=== PATIENT | male | born 1935 | race Caucasian/White ===

== ENCOUNTER → 2017-01-24 | Outpatient (CLI) | payer MEDICARE, BC ==
--- NOTE | 2017-01-24 16:37 | PN ---
Balwinder is coming for a followup and compliancy check regarding his SOPHIE treatment. The patient has severe SOPHIE with an AHI of 47, currently on an Auto CPAP unit with a pressure minimum of 5, maximum of 20. Note that the patient has also difficulties with kyphosis of the thoracic spine, and this has been an issue while putting on his mask and keeping it on throughout the night. I noted that he continues to have an increased leak around his mask, and this is clearly reflected in his compliancy data. His leak factor is around 53 L/minute while using the Simplus medium-sized full-face mask. While on treatment, his AHI is down to 16 from a baseline of 47. His P90 pressure is at 16 and he is averaging around 4.3 hours of CPAP use every night. He feels better and alert. He is trying to see if we can make any further adjustments on the mask interface to further improve his compliancy. Otherwise, he has no other new complaints for now. His weight has been stable. No other medical new-onset comorbidities. BP is 158/88, pulse 60, respiration 16, temperature 97.5. Saturations are 95% on room air. His BMI is 27.6. Weight is 166. Height is 5 feet 5 inches. GENERAL APPEARANCE: Calm, comfortable. HEENT: Thoracic spine kyphosis and scoliosis. Crowding of the posterior pharynx. There is no goiter or neck mass. LUNGS: Diminished breath sounds bilaterally; otherwise clear. HEART: Sounds are regular rate and rhythm. Normal S1, S2. ABDOMEN: Soft, nontender. No organomegaly. EXTREMITIES: No edema. No cyanosis or clubbing. IMPRESSION: 1. Severe symptomatic obstructive sleep apnea with an AHI of 47, currently on auto CPAP therapy. Compliancy is improving, although the patient is still having some residual obstructive sleep apnea due to increased leak and poor tolerability of his CPAP. 2. Hypersomnia, improving. 3. Severe nocturnal oxygen desaturation, worse during REM. 4. Loud snoring. 5. Hypertension. 6. Benign prostatic hypertrophy. 7. Osteoarthritis. 8. Thoracic spine kyphoscoliosis. PLAN: 1. Will switch this patient to an AirFit F10 full-face mask, medium size. 2. Keep the same CPAP settings, which will be an auto CPAP unit with a minimum of 5, maximum of 20. 3. Continue with the treatment, and hopefully we will see better compliance with AirFit F10 mask, knowing that this may result in less of a leak. He will see me back in 6 months' time for followup.
== END ==
LOC: SLEEP 13:04
PROVIDERS: ATTEND Internal Medicine Critical Care Medicine
DX: G47.33 Obstructive sleep apnea (adult) (pediatric) (principal); I10 Essential (primary) hypertension

== ENCOUNTER → 2017-08-01 | Outpatient (CLI) | payer MEDICARE, BC ==
--- NOTE | 2017-08-01 16:28 | PN ---
PROGRESS NOTE Balwinder has severe SOPHIE with an AHI of 47, and he is currently on an auto CPAP therapy with a minimum pressure of 5 and maximum 20. On today's evaluation the patient is reporting better CPAP use with the exception of the past month where the patient was unable to use the CPAP machine as he was battling a right lower extremity cellulitis and ulceration. Currently is being followed at the wound Center at [facility]. I checked the compliance data and noted that he has not been using the CPAP for the past 1 month. However earlier to that he was doing better, AHI was down to 10 and he was using it with less amount of leak. He is preferring this Simplus full face mask. No recent weight gain. He needs to go back on the CPAP treatment knowing that he has become symptomatic again off the treatment and his [place] score is up to 17. PHYSICAL EXAMINATION: BP is 140/61, pulse 78, respirations 20, temperature 97.2, saturation 96% on room air. BMI 31.5. Weight is 167. General appearance calm comfortable in no acute distress. Head atraumatic, normocephalic. Neck is short, crowding of his posterior pharynx. No goiter or neck masses. Lungs: Thoracolumbar kyphoscoliosis. Diminished breath sounds lung bases. Heart sounds regular rate and rhythm. Normal S1, S2. No murmurs. Abdomen is soft, nontender. No organomegaly. EXTREMITIES: No edema. No cyanosis or clubbing. Skin is negative for ulcers, wounds or cellulitis. Neuro is negative for anxiety, depression or claustrophobia. Neurologic: Alert and oriented times three. There is no focal neurological deficits. IMPRESSION: 1. Severe symptomatic obstructive sleep apnea with an AHI of 47. Currently on auto CPAP therapy. 2. Wound/cellulitis right lower extremity. Currently being followed up at the Wound Center. 3. Hypersomnia secondary to above. [place] score is 17. 4. Leak around the face improved with simple full-face mask. 5. Hypertension. 6. Benign prostatic hypertrophy. 7. Osteoarthritis. 8. Thoracolumbar kyphoscoliosis. PLAN: 1. Would recommend going back to CPAP use on a daily basis. 2. Continue CPAP therapy at same level of pressure. 3. Continue using a Simplus full face mask. 4. Follow up with the Wound Center. 5. See me back in a year's time, earlier if needed. MMODL / IJN: [id number] /
== END ==
LOC: SLEEP 12:59
PROVIDERS: ATTEND Internal Medicine Critical Care Medicine
DX: G47.33 Obstructive sleep apnea (adult) (pediatric) (principal); I10 Essential (primary) hypertension; M19.90 Unspecified osteoarthritis, unspecified site; N40.0 Benign prostatic hyperplasia without lower urinary tract symptoms; M41.85 Other forms of scoliosis, thoracolumbar region

== ENCOUNTER → 2018-08-07 | Outpatient (CLI) | payer MEDICARE, BC, OTHER ==
--- NOTE | 2018-08-07 16:42 | PN ---
PROGRESS NOTE Balwinder is 83, coming in for a compliancy check. This is an annual check for him. He has SOPHIE severe with an AHI of 47, and he has an APAP machine. He has lost weight. He used to weigh 167 approximately year ago. Currently down to 158. He is utilizing APAP at a minimum pressure of 4, maximum pressure of 20. His compliance data indicates adequate use. He is utilizing his machine every night. He is achieving 4.1 hours of APAP use every night. Average pressures is 12.9, and his AHI while on treatment is down to 8.6. He has no complaints. Sleep quality is good. He is waking up refreshed and alert during the day. He is preferring the Simplus full-face mask, and his equipment needs to be renewed. No other complaints otherwise for now, his [place] Score today is down to 12. REVIEW OF SYSTEMS: Twelve-point review of system was done. Positive findings are mentioned in history of present illness. PHYSICAL EXAMINATION: BP is 190/90, pulse 88, respirations 16, temp 97.9. Saturation 95% on room air. Height is 5 feet 0 inches. Weight is 158. BMI is 30.8. GENERAL APPEARANCE: Calm comfortable. Head is atraumatic, normocephalic. NECK: Supple. No JVD. No goiter or neck masses. There is evidence of thoracolumbar kyphoscoliosis involving the spine. Lungs diminished, otherwise clear. HEART: Sounds are regular rate and rhythm. Normal S1, S2. No S3, no murmurs. ABDOMEN: Soft, nontender. No organomegaly. EXTREMITIES: No edema. No cyanosis or clubbing. NEUROLOGIC: Alert and oriented x3. No focal neurological deficits. PSYCHIATRIC: Negative for anxiety or depression. IMPRESSION: 1. Severe SOPHIE with an AHI of 47, currently on APAP. 2. 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 3. Hypersomnia, improved, [place] score is down to 12. 4. Hypertension. 5. Benign prostatic hypertrophy. 6. Osteoarthritis. 7. Thoracolumbar kyphoscoliosis. PLAN: 1. Follow up with primary care regarding blood pressure control. The patient needs to have a tighter BP control. 2. Continue APAP therapy at the same level of pressure. 3. Renew CPAP mask which is a Simplus medium size full-face mask. 4. Weight loss noted. 5. Implement good sleep hygiene measures. 6. See me back in a year's time earlier if needed. The treatment is adequate for now. MMODL / IJN: [id number] /
== END ==
LOC: SLEEP 13:06
PROVIDERS: ATTEND Internal Medicine Critical Care Medicine
DX: G47.33 Obstructive sleep apnea (adult) (pediatric) (principal); I10 Essential (primary) hypertension; N40.0 Benign prostatic hyperplasia without lower urinary tract symptoms; M19.90 Unspecified osteoarthritis, unspecified site; M41.85 Other forms of scoliosis, thoracolumbar region; B95.62 Methicillin resistant Staphylococcus aureus infection as the cause of diseases classified elsewhere; Z99.89 Dependence on other enabling machines and devices

== ENCOUNTER → 2019-08-06 | Outpatient (CLI) | payer MEDICARE, BC ==
--- NOTE | 2019-08-06 14:29 | PN ---
PROGRESS NOTE This 84-year-old male patient with known history of obstructive sleep apnea coming in for a regular check. His last evaluation in my office was in July of 2019. The patient has severe disease with an AHI of 47. He also has severe degenerative arthritis and kyphoscoliosis of the thoracolumbar spine. He has an APAP unit which is set at a minimum pressure of 4, maximum pressure of 20. I noted that since his last evaluation, his compliancy has gotten worse. He is averaging only 1.5 hours of APAP use per night. When asked for the reasons for his diminished compliance, the patient stated that his mask which is a Simplus full-face mask is causing a hissing noise in middle of the middle of the night which is making him so uncomfortable and he ends up pulling off the machine. When checking the compliance data, the patient is putting on his CPAP machine every night and his compliancy for utilization of machine is 26/30 over the past 30 days. Never the less, he achieved more than 4 hours only once out of the past 30 days. His AHI is down to 11 with central apneas emerging with an index of 6.4. His average pressure utilized on the CPAP machine is 12.5. Otherwise, he is doing well. No specific complaints. He is a bit tired and sleepy during the day. Looking for alternative masks. REVIEW OF SYSTEMS: A 14-point review of system was done. He has limited exercise capacity. He walks around with the help of a walker. Has has severe kyphoscoliosis of the chest and he sleeps on his back. He has lower extremity wounds and he has hypertension and prostate. He gets up once or twice in the middle of night for urination. Otherwise, the rest of the review of systems is essentially negative. No hospitalizations. PHYSICAL EXAMINATION: BP is 166/98, pulse is 65, respirations 16, temperature 97.6, saturation 95% on room air. Height is 5,0, weight 147, [place] score is 11. BMI of 28.7. GENERAL APPEARANCE: Calm comfortable. HEAD: Atraumatic, normocephalic. NECK: Supple. No JVD. No goiter or neck masses. LUNGS: Forces of the chest, diminished breath sounds at lung base bilateral. Otherwise with no wheeze or rhonchi. HEART: Sounds are regular rate and rhythm. Normal S1, S2. No S3, S4. No murmurs. ABDOMEN: Soft, nontender. No organomegaly. EXTREMITIES: No edema. No cyanosis or clubbing. NEUROLOGICALLY: He is alert and oriented x3. No focal neurological deficits. IMPRESSION: 1. Symptomatic obstructive sleep apnea with an apnea-hypopnea index of 47. Compliancy has gone down while utilizing his APAP for the reasons mentioned above. 2. Hypersomnia, [place] score today is 11. 3. No major air leaks around the mask while utilizing a Simplus full-face mask. The noise that he has been hearing is related to the exhalation port of the mask. 4. Hypertension. 5. BPH. 6. Osteoarthritis. 7. Thoracolumbar kyphoscoliosis. PLAN: 1. I am going to keep the APAP mode for now and lower maximum pressure down to 12 cm of water. By doing so, will prevent higher pressures that could potentially induce central apneas and contributed hissing noise at exhalation port of his Simplus full- face mask. A short-term followup within 3 months will be needed to re-evaluate his compliance data and the success of treatment. 2. Switch him to an Air Fit F20 large size full-face mask. 3. Mask fit was done today in the office and the fit was great, a sample was given and the patient will see me back for a short-term followup regarding treatment success. Will continue to follow. OFELIA / ALMAN: [id number] /
== END | disposition home or self-care (01) ==
LOC: SLEEP 13:05
PROVIDERS: ATTEND Internal Medicine Critical Care Medicine
DX: G47.33 Obstructive sleep apnea (adult) (pediatric) (principal); I10 Essential (primary) hypertension; N40.0 Benign prostatic hyperplasia without lower urinary tract symptoms; M19.90 Unspecified osteoarthritis, unspecified site; M41.9 Scoliosis, unspecified; Z99.89 Dependence on other enabling machines and devices

== ENCOUNTER → 2019-10-29 | Outpatient (CLI) | payer MEDICARE, BC ==
--- NOTE | 2019-10-29 14:48 | PN ---
PROGRESS NOTE Balwinder is 84, coming in for a followup. He has severe SOPHIE, AHI of 47. I offered him an an Air Fit F20 full-face mask, large size. The patient was having difficulty in achieving good mask seal. I also lowered his APAP to a minimum pressure of 5, maximum pressure of 20 and the patient is coming in for reevaluation. Note that his treatment has become more successful in terms of leaks and the patient loves the mask seal on the new mask. I checked his compliance over the past 30 days and the patient has been achieving a leak of 7 L. Never the less, his AHI is slightly higher and I attribute this to the lowering of the maximum pressure that I have done on his APAP machine. Note that his AHI over the past 30 days is at 23. His average pressure utilized through the APAP was 11.9. The patient is achieving more than 4 hours of APAP use, around 18 over the past 30 days. He has no complaints. He feels that the mask has done its job and he is much more comfortable with the new face mask interface. REVIEW OF SYSTEMS: Fourteen-point review of system was done. Positive findings are mentioned in history of present illness. His blood pressure remains slightly elevated. No headaches, no altered mentation. No cough or sputum production. No chest tenderness, no wheezing, no heartburn, no nausea, no vomiting. No odynophagia, no gas, no abdominal distention or flatus. PHYSICAL EXAMINATION: BP is 150/86, pulse 84, respirations 16, temperature 97.6, saturation 96% on room air. Height is 5, 0 inches, weight is 145, BMI is 28.3. GENERAL APPEARANCE: Calm, comfortable. HEAD: Atraumatic, normocephalic. NECK: Supple. No JVD. No goiter or neck masses. Mallampati class IV. LUNGS: Clear to auscultation. HEART: Heart sounds are regular rate and rhythm. Normal S1, S2. No S3, S4. No murmurs. ABDOMEN: Soft, nontender. No organomegaly. EXTREMITIES: No edema. No cyanosis or clubbing. NEUROLOGIC: Awake and alert. There is no focal neurological deficits. PSYCHIATRIC: Negative for anxiety or depression. SKELETAL SYSTEM: The patient has severe kyphoscoliosis of the chest and spine and the patient walks with the help of a walker. IMPRESSION: 1. Severe obstructive sleep apnea; apnea-hypopnea index of 47. Currently on APAP. Mask seal is improved. Compliancy is acceptable, the AHI while on treatment is still elevated. 2. Hypersomnia, improved. 3. Hypertension. 4. BPH. 5. Thoracolumbar kyphoscoliosis. 6. Osteoarthritis. PLAN: 1. Increase the maximum pressure up to 15, keep the minimum pressure at 5 while utilizing the APAP mode. 2. Continue the Air Fit F20 full-face mask, large-size enough for a silent elbow. 3. See me back in a year's time. Treatment is more comfortable at this point in time, to the patient. MMODL / IJN: [id number] /
== END | disposition home or self-care (01) ==
LOC: SLEEP 13:16
PROVIDERS: ATTEND Internal Medicine Critical Care Medicine
DX: G47.33 Obstructive sleep apnea (adult) (pediatric) (principal); I10 Essential (primary) hypertension; N40.0 Benign prostatic hyperplasia without lower urinary tract symptoms; M41.85 Other forms of scoliosis, thoracolumbar region; M19.90 Unspecified osteoarthritis, unspecified site; Z99.89 Dependence on other enabling machines and devices

== ENCOUNTER → 2019-11-06 | Outpatient (CLI) | payer MEDICARE, BC ==
--- NOTE | 2019-11-06 15:01 | US ---
LOWER EXTREMITY VENOUS INSUFFICIENCY CLINICAL HISTORY: L97. 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 Right calf non healing wound x couple months SIDE PERFORMED: Bilateral 1) Color flow is present and patency is documented in the following vessels. No DVT or SVT is noted . EIV Common Femoral Vein Deep Femoral Vein Femoral Vein Popliteal Vein Proximal Calf Veins Greater Saph Vein Upper Small Saph Vein 2) There is venous reflux noted at the following venous levels: Right EIV 3) Incompetent perforators are noted at these levels: None IMPRESSION: No sonographic evidence of deep venous thrombosis nor superficial venous thrombosis withi n either the bilateral lower extremities. Venous reflux is seen of the right external iliac vein.
--- NOTE | 2019-11-13 10:58 | P.ARTDOP ---
Arterial Doppler LOWER EXTREMITY ARTERIAL DOPPLER: DATE OF SERVICE: 11/06/2019 Reason for study: Ulcer right calf. Doppler waveforms: Multiphasic bilaterally throughout. Pulse volume recording: []. Pressure gradients:. He elevated bilaterally. Ankle-brachial indices: Cannot occlude on the right. 1.5 on the left. Toe brachial indices: 0.95 on the right, 0.82 on the left Impression: Normal flow patterns. Suspect calcific wall disease of no hemodynamic significance..
== END | disposition home or self-care (01) ==
LOC: RADUSWWP 12:45
PROVIDERS: ATTEND Thoracic Surgery (Cardiothoracic Vascular Surgery)
DX: I87.8 Other specified disorders of veins (principal); L97.212 Non-pressure chronic ulcer of right calf with fat layer exposed
CPT/HCPCS: 93923; 93970

== ENCOUNTER 2020-03-08 12:32 | Emergency (ER) | payer MEDICARE, BC ==
[2020-03-08 12:41] VITALS: RESP 16; TEMP 97.9
[2020-03-08 13:33] LABS: Basophils % (A) 1 %; Eosinophils # (A) 0.1 k/uL (0-0.7); Eosinophils % (A) 1 %; HGB 12.6 gm/dL (13.0-17.5); Lymphocytes # (A) 0.9 k/uL (1.0-4.8); Lymphocytes % (A) 13 %; MCH 32.1 pg (25.0-35.0); MCHC 33.2 g/dL (31.0-37.0); MCV 96.6 fL (80.0-100.0); Mean Platelet Volume 7.1; Monocytes # (A) 0.4 k/uL (0-1.0); Monocytes % (A) 6 %; Neutrophils # (A) 5.1 k/uL (1.3-7.7); Neutrophils % (A) 77 %; Platelet Count 155 k/uL (150-450); RBC 3.94 m/uL (4.30-5.90); RDW 13.6 % (11.5-15.5); WBC 6.6 k/uL (3.8-10.6)
--- NOTE | 2020-03-08 13:39 | XR ---
EXAMINATION TYPE: XR KUB , 2 VIEWS DATE OF EXAM ORDERED: 03/08/2020 HISTORY: Constipation. COMPARISON: None. FINDINGS: There is a moderately severe dextroscoliosis. There are degenerative changes present withi n the lumbar spine. The lung bases are clear. Within the abdomen there are nondilated air-filled loops of large and small bowel throughout the abdo men. There is no evidence of obstruction or free air. There is vascular calcification present within the pelvis. IMPRESSION: NO ACUTE INTRA-ABDOMINAL ABNORMALITY.
--- NOTE | 2020-03-08 13:41 | ED ---
Abdominal Pain HPI - General Chief Complaint: Abdominal Pain Stated Complaint: constipation Time Seen by Provider: 03/08/20 12:46 Source: patient Mode of arrival: wheelchair Limitations: no limitations - History of Present Illness Initial Comments: Patient is an 85-year-old male presenting to the emergency Department with complaints of constipation for the past week. Patient states he normally takes a stool softener daily but states he has not had a bowel movement since last weekend. Patient states he has been having some increase in pressure in his lower abdomen as well as having some aggravation of his hemorrhoids. He states he tried a laxative as well and also tried to disimpact himself without success. Patient denies any recent fever, chills. He denies any significant abdominal pain, nausea, vomiting, chest pain, shortness of breath. He has no further complaints at this time - Related Data Home Medications Medication Instructions Recorded Confirmed Cholecalciferol [Vitamin D3 (25 1,000 unit PO DAILY 04/06/16 12/26/18 Mcg = 1000 Iu)] Cyanocobalamin [Vitamin B-12] 1,000 mcg PO DAILY 04/06/16 12/26/18 Famotidine [Pepcid] 20 mg PO DAILY 04/06/16 12/26/18 Fish Oil/Dha/Epa [Fish Oil 1,200 1 cap PO BID 04/06/16 12/26/18 mg Fish Oil] Multivit-Min/FA/Lycopen/Lutein 1 tab PO DAILY 04/11/16 12/26/18 [Centrum Silver Tablet] Pravastatin Sodium [Pravachol] 20 mg PO HS 07/19/17 12/26/18 Tamsulosin [Flomax] 0.4 mg PO DAILY 10/18/17 12/26/18 Propylene Glycol/Peg 400/Pf 1 dropper BOTH EYES DAILY 11/15/17 12/26/18 [Systane 0.3-0.4% Eye Drops] Rivaroxaban [Xarelto] 15 mg PO DAILY 11/15/17 12/26/18 traMADol HCL [Ultram] 50 mg PO Q6HR PRN 01/17/18 12/26/18 Acetaminophen [Tylenol Extra 500 mg PO Q4HR 08/22/18 12/26/18 Strength] Lidocaine 2% Gel [Xylocaine Jelly 1 applic TOPICAL ONCE PRN 12/05/18 12/26/18 2%] Previous Rx's Medication Instructions Recorded Metoprolol Tartrate [Lopressor] 50 mg PO BID #60 tab 08/25/17 amLODIPine [Norvasc] 5 mg PO DAILY #30 tab 08/25/17 Allergies Allergy/AdvReac Type Severity Reaction Status Date / Time No Known Allergies Allergy Verified 03/08/20 12:41 Review of Systems ROS Statement: Those systems with pertinent positive or pertinent negative responses have been documented in the HPI. ROS Other: All systems not noted in ROS Statement are negative. Past Medical History Past Medical History: Atrial Fibrillation, Hearing Disorder / Deafness, Hypertension, Osteoarthritis (OA), Prostate Disorder, Sleep Apnea/CPAP/BIPAP, Syncope Additional Past Medical History / Comment(s): HEP C- 1970's(never treated). DOZES OFF EASILY, SYNCOPE EPISODES, chronic back pain,, "got pacemaker because heart was stopping for a short time", constipation, kyphosis, wound on rt lower extremtiy-goes to [facility], urinary leakage, History of Any Multi-Drug Resistant Organisms: MRSA Date of last positivie culture/infection: 10/30/19 MDRO Source:: Right Leg Past Surgical History: Hernia Repair, Pacemaker Additional Past Surgical History / Comment(s): MENCKEL'S DIVERTICULUM. cyst excised off chest. HEMMORHOIDECTOMY,alice cataracts, on past medical hx tonsils listed but pt did'nt rememebr this.07-30-17 debridment of wound rt lower extremity. Past Anesthesia/Blood Transfusion Reactions: No Reported Reaction Additional Past Anesthesia/Blood Transfusion Reaction / Comment(s): states no problems with intubation/general anesthesia Type of Cardiac Device: Permanent Pacemaker Device Placement Date:: 02/2017 Past Psychological History: No Psychological Hx Reported Smoking Status: Former smoker Past Alcohol Use History: None Reported Past Drug Use History: None Reported - Past Family History Father Family Medical History: Cancer Additional Family Medical History / Comment(s): pancreatic cancer Mother Family Medical History: Myocardial Infarction ([place]) Additional Family Medical History / Comment(s): father from cancer General Exam - General Exam Comments Initial Comments: GENERAL: Well-appearing, well-nourished and in no acute distress. HEAD: Atraumatic, normocephalic. EYES: Pupils equal round and reactive to light, extraocular movements intact, sclera anicteric, conjunctiva are normal. ENT: TMs normal, nares patent, oropharynx clear without exudates. Moist mucous membranes. NECK: Normal range of motion, supple without lymphadenopathy or JVD. LUNGS: Breath sounds clear to auscultation bilaterally and equal. No wheezes rales or rhonchi. HEART: Regular rate and rhythm without murmurs, rubs or gallops. ABDOMEN: Pressure feeling with palpation of the lower abdomen, no sharp pains anywhere. Soft, hypoactive bowel sounds. No guarding, no rebound. No masses appreciated. : Deferred EXTREMITIES: Normal range of motion, no pitting or edema. No clubbing or cyanosis. NEUROLOGICAL: Normal speech, normal gait. PSYCH: Normal mood, normal affect. SKIN: Warm, Dry, normal turgor, no rashes or lesions noted. Limitations: no limitations Course Vital Signs 03/08/20 03/08/20 12:37 14:36 Temperature 97.9 F Pulse Rate 63 62 Respiratory 16 16 Rate Blood Pressure 125/82 162/86 O2 Sat by Pulse 95 95 Oximetry Medical Decision Making - Medical Decision Making Patient is an 85-year-old male presenting for constipation for one week. He states he has a history of this in the past. His vitals are stable. Lab work shows no acute abnormalities. KUB shows no acute changes. Patient was given an enema and had a large bowel movement in the ER. He states he is feeling much better. He is stable for discharge. I recommended increasing his water intake throughout the day. He will have a trial of a stool softener and in addition to occasional laxative. He will follow up with his PCP. He is in agreement with this plan of care. Patient's son is also here and is in agreement. Case discussed with Dr. Easton. - Lab Data Result diagrams: 03/08/20 13:23 03/08/20 13:23 Lab Results 03/08/20 03/08/20 Range/Units 13:23 13:23 WBC 6.6 (3.8-10.6) k/uL RBC 3.94 L (4.30-5.90) m/uL Hgb 12.6 L (13.0-17.5) gm/dL Hct 38.0 L (39.0-53.0) % MCV 96.6 (80.0-100.0) fL MCH 32.1 (25.0-35.0) pg MCHC 33.2 (31.0-37.0) g/dL RDW 13.6 (11.5-15.5) % Plt Count 155 (150-450) k/uL Neutrophils % 77 % Lymphocytes % 13 % Monocytes % 6 % Eosinophils % 1 % Basophils % 1 % Neutrophils # 5.1 (1.3-7.7) k/uL Lymphocytes # 0.9 L (1.0-4.8) k/uL Monocytes # 0.4 (0-1.0) k/uL Eosinophils # 0.1 (0-0.7) k/uL Basophils # 0.0 (0-0.2) k/uL Sodium 137 (137-145) mmol/L Potassium 5.1 (3.5-5.1) mmol/L Chloride 105 (98-107) mmol/L Carbon Dioxide 24 (22-30) mmol/L Anion Gap 8 mmol/L BUN 24 H (9-20) mg/dL Creatinine 0.60 L (0.66-1.25) mg/dL Est GFR (CKD-EPI)AfAm >90 (>60 ml/min/1.73 sqM) Est GFR (CKD-EPI)NonAf >90 (>60 ml/min/1.73 sqM) Glucose 101 H (74-99) mg/dL Calcium 9.4 (8.4-10.2) mg/dL Total Bilirubin 0.8 (0.2-1.3) mg/dL AST 43 (17-59) U/L ALT 43 (4-49) U/L Alkaline Phosphatase 49 (38-126) U/L Total Protein 6.8 (6.3-8.2) g/dL Albumin 4.0 (3.5-5.0) g/dL Disposition Clinical Impression: Constipation, External hemorrhoids Disposition: HOME SELF-CARE Condition: Stable Instructions (If sedation given, give patient instructions): Constipation (ED) Additional Instructions: Please return to the Emergency Department if symptoms worsen or any other concerns. Increase water intake throughout the day. Trial of MiraLAX for stool softener Is patient prescribed a controlled substance at d/c from ED?: No Referrals: Que Mari MD [Primary Care Provider] - 1-2 days
[2020-03-08 13:46] LABS: ALT 43 U/L (4-49); African American GFR (CKD) >90 (>60 ml/min/1.73 sqM); Anion Gap 8 mmol/L; Blood Urea Nitrogen 24 mg/dL (9-20); Calcium 9.4 mg/dL (8.4-10.2); Carbon Dioxide 24 mmol/L (22-30); Chloride 105 mmol/L (98-107); Glucose 101 mg/dL (74-99); Non-African American GFR(CKD) >90 (>60 ml/min/1.73 sqM); Sodium 137 mmol/L (137-145); Total Bilirubin 0.8 mg/dL (0.2-1.3); Total Protein 6.8 g/dL (6.3-8.2)
[2020-03-08] MEDS ORDERED: NA PHOS,M-B/NA PHOS,DI-BA 133 ML ENEMA RECTAL STA (13:47)
[2020-03-08 13:53] LABS: AST 43 U/L (17-59); Potassium 5.1 mmol/L (3.5-5.1)
[2020-03-08 13:54] LABS: Alkaline Phosphatase 49 U/L (38-126)
[2020-03-08 14:37] VITALS: BP 162/86; PULSE 62
== END 2020-03-08 14:50 | disposition home or self-care (01) ==
LOC: EC 12:32
DX: K59.00 Constipation, unspecified (principal); K64.4 Residual hemorrhoidal skin tags; I48.91 Unspecified atrial fibrillation; I10 Essential (primary) hypertension; N42.9 Disorder of prostate, unspecified; M19.90 Unspecified osteoarthritis, unspecified site; G47.30 Sleep apnea, unspecified; Z79.01 Long term (current) use of anticoagulants; Z79.899 Other long term (current) drug therapy; Z99.89 Dependence on other enabling machines and devices; Z86.14 Personal history of Methicillin resistant Staphylococcus aureus infection; Z87.891 Personal history of nicotine dependence
CPT/HCPCS: 36415; 74018; 80053; 85025; 99284

== ENCOUNTER 2020-08-13 16:03 | Observation (INO) | payer MEDICARE, BC ==
[2020-08-13] MEDS ORDERED: MORPHINE SULFATE 4 MG/ML SYRINGE IV STA (16:49)
[2020-08-13 17:10] LABS: Basophils # (A) 0.1 k/uL (0-0.2); Basophils % (A) 1 %; Eosinophils # (A) 0.1 k/uL (0-0.7); Eosinophils % (A) 1 %; HCT 41.8 % (39.0-53.0); Lymphocytes # (A) 1.8 k/uL (1.0-4.8); Lymphocytes % (A) 27 %; MCH 30.3 pg (25.0-35.0); MCHC 33.5 g/dL (31.0-37.0); MCV 90.6 fL (80.0-100.0); Mean Platelet Volume 7.2; Monocytes # (A) 0.5 k/uL (0-1.0); Monocytes % (A) 7 %; Neutrophils # (A) 4.3 k/uL (1.3-7.7); Neutrophils % (A) 62 %; Platelet Count 181 k/uL (150-450); RBC 4.61 m/uL (4.30-5.90); RDW 13.8 % (11.5-15.5); WBC 6.9 k/uL (3.8-10.6)
[2020-08-13 17:20] LABS: ALT 37 U/L (4-49); AST 36 U/L (17-59); Acetaminophen 23.2 ug/mL; African American GFR (CKD) >90 (>60 ml/min/1.73 sqM); Albumin 3.9 g/dL (3.5-5.0); Alkaline Phosphatase 51 U/L (38-126); Anion Gap 7 mmol/L; Blood Urea Nitrogen 22 mg/dL (9-20); Calcium 9.5 mg/dL (8.4-10.2); Carbon Dioxide 26 mmol/L (22-30); Chloride 104 mmol/L (98-107); Glucose 118 mg/dL (74-99); Non-African American GFR(CKD) 82 (>60 ml/min/1.73 sqM); Potassium 3.8 mmol/L (3.5-5.1); Sodium 137 mmol/L (137-145); Total Bilirubin 0.8 mg/dL (0.2-1.3); Total Protein 6.6 g/dL (6.3-8.2)
[2020-08-13 17:25] LABS: Partial Thromboplastin Time 24.5 sec (22.0-30.0)
--- NOTE | 2020-08-13 18:01 | CT ---
EXAMINATION TYPE: CT lumbar spine wo con DATE OF EXAM: 08/13/2020 COMPARISON: None HISTORY: Lower back pain CT DLP: 646.8 mGycm Automated exposure control for dose reduction was used. Images were obtained from the level of S3-T12 vertebra without contrast. There is thoracolumbar dextroscoliotic deformity. There is degenerative disc space narrowing througho ut the lumbar spine. There is multilevel vacuum disc. There is 40% anterior wedging of L1 vertebral b justyna. Fracture appears old. There is no lumbar paraspinal mass. There are multiple left-sided renal ca lculi. There is small calculus lower pole right kidney. There is hypertrophic facet arthropathy and L 4-5 bony spinal stenosis. There is no lumbar paraspinal mass. Sacroiliac joints are intact. IMPRESSION: Multilevel spondylosis. Lumbar dextroscoliosis. L4-5 bony spinal stenosis. L1 compression fracture pr obably old.
[2020-08-13] MEDS ORDERED: NALOXONE 0.4 MG/ML 1 ML VIAL IV PRN (19:02)
[2020-08-13] MEDS ORDERED: IBUPROFEN 400 MG TAB PO PRN (19:02)
--- NOTE | 2020-08-13 19:04 | ED ---
General Adult HPI - General Chief complaint: Back Pain/Injury Stated complaint: Sent by PCP - pain management Time Seen by Provider: 08/13/20 16:31 Source: patient, family, RN notes reviewed, old records reviewed Mode of arrival: wheelchair Limitations: no limitations - History of Present Illness Initial comments: 85-year-old male patient to ED for evaluation. He reports that about 10 days ago he had a mechanical fall while sitting down to go to the bathroom hit his gluteal region on the edge of the toilet and then fell down landing on the ground. Denies hitting his head or his neck. Denies any current use of blood thinners. Patient reports that since then he has been having a significant amount of pain in his low back. He reports that he is having difficulty with his activities of daily life, after walking around for a short distance he has to lay down in bed because of the pain. He denies any paresthesias radiculopathy loss of bowel or bladder control, new weakness. Denies any other complaints. Pt was seen by his PCP Dr. Mari who recommended admission into hospital for intractable pain. Systemic: Pt denies fatigue, fever/chills, rash. Pt denies weakness, night sweats, weight loss. Neuro: Pt denies headache, visual disturbances, syncope or pre-syncope. HEENT: Pt denies ocular discharge or irritation, otalgia, rhinorrhea, p haryngitis or notable lymphadenopathy. Cardiopulmonary: Pt denies chest pain, SOB, heart palpitations, dyspnea on exertion. Abdominal/GI: Pt denies abdominal pain, n/v/d. : Pt denies dysuria, burning w/ urination, frequency/urgency. Denies new onset urinary or bowel incontinence. MSK: Pt denies loss of strength or function in extremities. - Related Data Home Medications Medication Instructions Recorded Confirmed Cholecalciferol [Vitamin D3 (25 1,000 unit PO HS 04/06/16 08/13/20 Mcg = 1000 Iu)] Cyanocobalamin [Vitamin B-12] 1,000 mcg PO HS 04/06/16 08/13/20 Famotidine [Pepcid] 20 mg PO DAILY 04/06/16 08/13/20 Fish Oil/Dha/Epa [Fish Oil 1,200 2 cap PO HS 04/06/16 08/13/20 mg Fish Oil] Pravastatin Sodium [Pravachol] 20 mg PO HS 07/19/17 08/13/20 Tamsulosin [Flomax] 0.4 mg PO HS 10/18/17 08/13/20 Acetaminophen [Tylenol Extra 500 mg PO Q4HR PRN 08/22/18 08/13/20 Strength] Fluticasone Nasal Walsh [Flonase 2 spr EA NOSTRIL DAILY PRN 08/13/20 08/13/20 Nasal Walsh] Propylene Glycol/Peg 400 [Systane 1 drop BOTH EYES HS PRN 08/13/20 08/13/20 Ultra 0.4-0.3% Eye Drp] Zinc Oxide [Desitin] 1 applic TOPICAL DAILY 08/13/20 08/13/20 amLODIPine [Norvasc] 5 mg PO HS 08/13/20 08/13/20 Previous Rx's Medication Instructions Recorded Metoprolol Tartrate [Lopressor] 50 mg PO BID #60 tab 08/25/17 Allergies Allergy/AdvReac Type Severity Reaction Status Date / Time No Known Allergies Allergy Verified 08/13/20 18:13 Review of Systems ROS Statement: Those systems with pertinent positive or pertinent negative responses have been documented in the HPI. ROS Other: All systems not noted in ROS Statement are negative. Past Medical History Past Medical History: Atrial Fibrillation, Hearing Disorder / Deafness, Hypertension, Osteoarthritis (OA), Prostate Disorder, Sleep Apnea/CPAP/BIPAP, Syncope Additional Past Medical History / Comment(s): HEP C- 1970's(never treated). DOZES OFF EASILY, SYNCOPE EPISODES, chronic back pain,, "got pacemaker because heart was stopping for a short time", constipation, kyphosis, wound on rt lower extremtiy-goes to [facility], urinary leakage, History of Any Multi-Drug Resistant Organisms: MRSA Date of last positivie culture/infection: 10/30/19 MDRO Source:: Right Leg Past Surgical History: Hernia Repair, Pacemaker Additional Past Surgical History / Comment(s): MENCKEL'S DIVERTICULUM. cyst excised off chest. HEMMORHOIDECTOMY,alice cataracts, on past medical hx tonsils listed but pt did'nt rememebr this.07-30-17 debridment of wound rt lower ext remity. Past Anesthesia/Blood Transfusion Reactions: No Reported Reaction Additional Past Anesthesia/Blood Transfusion Reaction / Comment(s): states no problems with intubation/general anesthesia Type of Cardiac Device: Permanent Pacemaker Device Placement Date:: 02/2017 Past Psychological History: No Psychological Hx Reported Smoking Status: Never smoker Past Alcohol Use History: None Reported Past Drug Use History: None Reported - Past Family History Father Family Medical History: Cancer Additional Family Medical History / Comment(s): pancreatic cancer Mother Family Medical History: Myocardial Infarction ([place]) Additional Family Medical History / Comment(s): father from cancer General Exam - General Exam Comments Initial Comments: Constitutional: NAD, AOX3, Pt has pleasant affect. HEENT: NC/AT, trachea midline, neck supple, no lymphadenopathy. Posterior pharynx non erythematous, without exudates. External ears appear normal, without discharge. Mucous membranes moist. Eyes PERRLA, EOM intact. There is no scleral icterus. No pallor noted. Cardiopulmonary: RRR, no murmurs, rubs or gallops, no JVD noted. Lungs CTAB in anterior and posterior diaz. No peripheral edema. Abdominal exam: Abdomen soft and non-distended. Abdomen non-tender to palpation in all 4 quadrants. Bowel sounds active in LLQ. No hepatosplenomegaly. Neuro: CN II-XII grossly intact. No nuchal rigidity. MSK: Mild tenderness to the lumbar region. No skin changes. Full active ROM in upper and lower extremities, 5/5 stregnth. Sensation intact. Distal strength intact and equal. Distal pulses intact and equal. Limitations: no limitations Course Vital Signs 08/13/20 16:21 Temperature 97.1 F L Pulse Rate 72 Respiratory 20 Rate Blood Pressure 161/91 O2 Sat by Pulse 96 Oximetry Medical Decision Making - Medical Decision Making 85-year-old male patient to the for back pain. Patient is having acute on chronic lumbar back pain. Laboratory investigations are obtained and are nonimpressive. Lumbar CT displayed spondylolysis old compression fracture potentially old, stenosis. Patient admitted for orthopedic as well as pain management consult. I discussed case with Dr. Beasley - who will see pt in hospital. Case discussed with Dr. Cardona. - Lab Data Result diagrams: 08/13/20 16:56 08/13/20 16:56 Lab Results 08/13/20 08/13/20 08/13/20 Range/Units 16:56 16:56 16:56 WBC 6.9 (3.8-10.6) k/uL RBC 4.61 (4.30-5.90) m/uL Hgb 14.0 (13.0-17.5) gm/dL Hct 41.8 (39.0-53.0) % MCV 90.6 (80.0-100.0) fL MCH 30.3 (25.0-35.0) pg MCHC 33.5 (31.0-37.0) g/dL RDW 13.8 (11.5-15.5) % Plt Count 181 (150-450) k/uL MPV 7.2 Neutrophils % 62 % Lymphocytes % 27 % Monocytes % 7 % Eosinophils % 1 % Basophils % 1 % Neutrophils # 4.3 (1.3-7.7) k/uL Lymphocytes # 1.8 (1.0-4.8) k/uL Monocytes # 0.5 (0-1.0) k/uL Eosinophils # 0.1 (0-0.7) k/uL Basophils # 0.1 (0-0.2) k/uL PT 10.0 (9.0-12.0) sec INR 1.0 (<1.2) APTT 24.5 (22.0-30.0) sec Sodium 137 (137-145) mmol/L Potassium 3.8 (3.5-5.1) mmol/L Chloride 104 (98-107) mmol/L Carbon Dioxide 26 (22-30) mmol/L Anion Gap 7 mmol/L BUN 22 H (9-20) mg/dL Creatinine 0.76 (0.66-1.25) mg/dL Est GFR (CKD-EPI)AfAm >90 (>60 ml/min/1.73 sqM) Est GFR (CKD-EPI)NonAf 82 (>60 ml/min/1.73 sqM) Glucose 118 H (74-99) mg/dL Calcium 9.5 (8.4-10.2) mg/dL Total Bilirubin 0.8 (0.2-1.3) mg/dL AST 36 (17-59) U/L ALT 37 (4-49) U/L Alkaline Phosphatase 51 (38-126) U/L Total Protein 6.6 (6.3-8.2) g/dL Albumin 3.9 (3.5-5.0) g/dL Acetaminophen 23.2 ug/mL Disposition Clinical Impression: Acute back pain, Compression fracture of L1 vertebra Disposition: ADMITTED IP TO THIS HOSP Is patient prescribed a controlled substance at d/c from ED?: No Referrals: Que Mari MD [Primary Care Provider] - 1-2 days
[2020-08-13] MEDS: METOPROLOL TARTRATE 50 MG TAB PO SCH (21:14)
[2020-08-13] MEDS: amLODIPine 5 MG TAB PO SCH (21:14)
[2020-08-14] MEDS: MORPHINE SULFATE 4 MG/ML SYRINGE IV PRN ×2 (04:55→20:06)
[2020-08-14] MEDS: METOPROLOL TARTRATE 50 MG TAB PO SCH ×2 (08:18→20:10)
[2020-08-14] MEDS ORDERED: ARTIFICIAL TEARS-HYPROMELLOSE DROPS 15 ML BTL BOTH EYES PRN (10:44)
[2020-08-14] MEDS: ENOXAPARIN 40 MG/0.4 ML SYRINGE SQ SCH (11:50)
[2020-08-14] MEDS: ZINC OXIDE 20% OINT 28.4 GM TUBE TOPICAL SCH (11:50)
[2020-08-14] MEDS: FAMOTIDINE 20 MG TAB PO SCH (11:50)
--- NOTE | 2020-08-14 12:57 | P.CNOR ---
History of Present Illness - [facility] Consult date: 08/14/20 Requesting physician: Otoniel Hyde Consult reason: fracture (L1 compression fracture), low back pain (Acute on chronic low back pain) History of present illness: Patient is a pleasant 85-year-old male who was previously seen in the outpatient setting who is seen and examined at bedside for acute on chronic low back pain. Approximately 10 days ago the patient went to sit on the toilet and states he misjudged the toilet was and he fell hitting his back on the toilet bowl. Since that time he has had increased low back pain with increased activities. He states with lying down does help improve his pain. He states during increased ambulation, bending, twisting, and sitting upright he has exacerbation of his back pain. While at rest his back pain is 1-2/10. With increased activities his back pain is 8-9/10. He denies any lower extremity weakness bilaterally. He does have some chronic pain over his left anterior thigh which has had some improvement recently with physical therapy. He had previously followed Dr. Fofana in pain management. His last appointment was 06/22/[address] Fofana. He states they attempted an injection with Dr. Fofana who stated the injection had failed. He was subsequently referred to physical therapy. He had been working through physical therapy without difficulty. He currently denies any other complaints. He states he does not have a known history of L1 fracture. He is known have significant degenerative changes at his lumbar spine. His past medical history includes atrial fibrillation, hypertension, and prostate disorder. Past Medical History Past Medical History: Atrial Fibrillation, Hearing Disorder / Deafness, Hypertension, Osteoarthritis (OA), Prostate Disorder, Sleep Apnea/CPAP/BIPAP, Syncope Additional Past Medical History / Comment(s): HEP C- 1970's(never treated). DOZES OFF EASILY, SYNCOPE EPISODES, chronic back pain,, "got pacemaker because heart was stopping for a short time", constipation, kyphosis, wound on rt lower extremtiy-goes to [facility], urinary leakage, History of Any Multi-Drug Resistant Organisms: MRSA Year Discovered:: 10/30/19 MDRO Source:: Right Leg Past Surgical History: Hernia Repair, Pacemaker Additional Past Surgical History / Comment(s): MENCKEL'S DIVERTICULUM. cyst excised off chest. HEMMORHOIDECTOMY,alice cataracts, on past medical hx tonsils listed but pt did'nt rememebr this.07-30-17 debridment of wound rt lower extremity. Past Anesthesia/Blood Transfusion Reactions: No Reported Reaction Additional Past Anesthesia/Blood Transfusion Reaction / Comm: states no problems with intubation/general anesthesia Type of Cardiac Device: Permanent Pacemaker Device Placement Date:: 02/2017 Past Psychological History: No Psychological Hx Reported Additional Psychological History / Comment(s): PT LIVES WITH AT [facility]. RECEIVED HOME CARE SERVICES (NADJA LINDSAY NAME) HAS WALKER, SHOWER CHAIR, CPAP MACHINE. Smoking Status: Former smoker Past Alcohol Use History: None Reported Additional Past Alcohol Use History / Comment(s): SMOKED [id number], 1/2 PPD for many years then swithced to 1 cigar daily until he quit 1969. Past Drug Use History: None Reported - Past Family History Father Family Medical History: Cancer Additional Family Medical History / Comment(s): pancreatic cancer Mother Family Medical History: Myocardial Infarction ([place]) Additional Family Medical History / Comment(s): father from cancer Medications and Allergies Home Medications Medication Instructions Recorded Confirmed Type Cholecalciferol [Vitamin D3 (25 1,000 unit PO HS 04/06/16 08/13/20 History Mcg = 1000 Iu)] Cyanocobalamin [Vitamin B-12] 1,000 mcg PO HS 04/06/16 08/13/20 History Famotidine [Pepcid] 20 mg PO DAILY 04/06/16 08/13/20 History Fish Oil/Dha/Epa [Fish Oil 1,200 2 cap PO HS 04/06/16 08/13/20 History mg Fish Oil] Pravastatin Sodium [Pravachol] 20 mg PO HS 07/19/17 08/13/20 History Metoprolol Tartrate [Lopressor] 50 mg PO BID #60 tab 08/25/17 08/13/20 Rx Tamsulosin [Flomax] 0.4 mg PO HS 10/18/17 08/13/20 History Acetaminophen [Tylenol Extra 500 mg PO Q4HR PRN 08/22/18 08/13/20 History Strength] Fluticasone Nasal Allison [Flonase 2 spr EA NOSTRIL DAILY PRN 08/13/20 08/13/20 History Nasal Allison] Propylene Glycol/Peg 400 [Systane 1 drop BOTH EYES HS PRN 08/13/20 08/13/20 History Ultra 0.4-0.3% Eye Drp] Zinc Oxide [Desitin] 1 applic TOPICAL DAILY 08/13/20 08/13/20 History amLODIPine [Norvasc] 5 mg PO HS 08/13/20 08/13/20 History Allergies Allergy/AdvReac Type Severity Reaction Status Date / Time No Known Allergies Allergy Verified 08/13/20 18:13 Physical Examination Physical exam: Patient is awake, alert, and oriented 3 Vital signs stable Good chest excursion with deep inspiration and expiration Abdomen soft nontender Examination of lumbar spine reveals skin is intact with no abrasions, lacerations, or bruises; no erythema, purulence or signs of infection No significant pain with palpation over the L1 fracture site Some pain with palpation over the lumbosacral junction Dorsiflexion, plantarflexion, and extensor hallucis longus positive sustained bilaterally Lower extremity strength 5/5 bilaterally Patient is able to lift legs off the bed independently simultaneously without difficulty No lower extremity hyperreflexia bilaterally Straight leg test negative bilateral lower extremities Negative Lasegue's test bilaterally No signs or symptoms of DVT; no calf pain No pain with internal and external rotation of the hips bilaterally Neurovascularly intact Results Pertinent studies: CT of the lumbar spine taken on 08/13/2020: Significant degenerative scoliosis; degenerative disc disease throughout the lumbar spine; L1-2, L2-3, L3-4, and L4- 5 vacuum disc phenomenon; L2-3 asymmetric degenerative disc disease with lateral osteophytic spurring in the apex of the scoliosis at this level; L4-5 and L5-S1 asymmetric degenerative disc disease; L1 compression fracture deformity of approximately 40% height loss of the superior endplate of indeterminate age but appears new as compared to previous study taken in the outpatient setting on 12/16/2017; multilevel lumbar spinal stenosis; lumbar facet arthropathy - Labs Labs: Abnormal Lab Results - Last 24 Hours (Table) 08/13/20 Range/Units 16:56 BUN 22 H (9-20) mg/dL Glucose 118 H (74-99) mg/dL H & H 08/13/20 Range/Units 16:56 Hgb 14.0 (13.0-17.5) gm/dL Hct 41.8 (39.0-53.0) % Coagulation 08/13/20 Range/Units 16:56 INR 1.0 (<1.2) Result Diagrams: 08/13/20 16:56 08/13/20 16:56 Assessment and Plan Assessment: Assessment: Acute on chronic low back pain Status post fall L1 compression fracture deformity with approximately 40% height loss of indeterminate age possibly acute Scoliosis Lumbar degenerative disc disease Lumbar facet arthropathy Left lower extremity radiculopathy Lumbar stenosis Atrial fibrillation Hypertension History of prostate disorder (1) Acute exacerbation of chronic low back pain Current Visit: Yes Status: Acute Code(s): M54.5 - LOW BACK PAIN; G89.29 - OTHER CHRONIC PAIN SNOMED Code(s): 853260875 (2) Lumbar back pain with radiculopathy affecting left lower extremity Current Visit: Yes Status: Acute Code(s): M54.16 - RADICULOPATHY, LUMBAR REGION SNOMED Code(s): 875161350 (3) Lumbar facet arthropathy Current Visit: Yes Status: Acute Code(s): M47.816 - SPONDYLOSIS W/O MYELOPATHY OR RADICULOPATHY, LUMBAR REGION SNOMED Code(s): 769857441 (4) Lumbar degenerative disc disease Current Visit: Yes Status: Acute Code(s): M51.36 - OTHER INTERVERTEBRAL DISC DEGENERATION, LUMBAR REGION SNOMED Code(s): 80910429 (5) Lumbar stenosis Current Visit: Yes Status: Acute Code(s): M48.061 - SPINAL STENOSIS, LUMBAR REGION WITHOUT NEUROGENIC LISA SNOMED Code(s): 98444196 (6) Status post fall Current Visit: Yes Status: Acute Code(s): Z91.81 - HISTORY OF FALLING SNOMED Code(s): 729639044 (7) Atrial fibrillation Current Visit: Yes Status: Acute Code(s): I48.91 - UNSPECIFIED ATRIAL FIBRILLATION SNOMED Code(s): 33219478 (8) Hypertension Current Visit: Yes Status: Acute Code(s): I10 - ESSENTIAL (PRIMARY) HYPERTENSION SNOMED Code(s): 17517961 (9) History of prostate disorder Current Visit: Yes Status: Acute Code(s): Z87.438 - PERSONAL HISTORY OF OTHER DISEASES OF MALE GENITAL ORGANS SNOMED Code(s): 537931313 (10) Scoliosis Current Visit: Yes Status: Acute Code(s): M41.9 - SCOLIOSIS, UNSPECIFIED SNOMED Code(s): 587523011 (11) Compression fracture of L1 vertebra Current Visit: Yes Status: Acute Code(s): S32.010A - WEDGE COMPRESSION FRACTURE OF FIRST LUMBAR VERTEBRA, INIT SNOMED Code(s): 778313514 Plan: Plan: 1. After reviewing of imaging within the hospital, reviewing of imaging outside hospital, physical examination the patient, and further discussion with the patient, we will currently plan to continue conservative treatment at this time and we'll plan for bracing. Patient does have evidence of an L1 compression fr acture deformity with approximately 40% height loss which was not present on previous imaging from 12/16/2017. Patient denies being previously diagnosed with a compression fracture deformity. On physical examination he does have pain more at the lumbosacral region than he does over the L1 site. However he does have increased low back pain with bending, twisting, ambulation, and sitting upright. His pain is better controlled at rest. He also does have significant degenerative changes throughout his lumbar spine with significant scoliosis, degenerative disc disease, facet arthropathy, and spinal stenosis. He is known have some chronic low back pain and left lower extremity radiculopathy which had been fairly well controlled with conservative treatment prior to his recent fall. Given his significant degenerative changes as well as his L1 compression fracture deformity, patient could benefit from bracing. A prescription has been written and provided to case management for an Exos LSO brace. Once this brace is delivered and fitted appropriately, patient should wear this brace while sitting upright at greater than 45, during increase activities, during ambulation. Brace is not have to or while lying in bed or while bathing. Following fitting of this brace, patient is clear for discharge from an orthopedic spine standpoint. Following discharge, patient may follow-up with Elias Munguia PA-C or Dr. Obey Beasley at [facility]. 2. Patient will continue be seen examined by medicine for further treatment evaluation 3. Continue medications as prescribed as needed for pain control Time with Patient: Greater than 30 (Including obtaining history, physical examination, reviewing of imaging, and dictation.)
[2020-08-14 16:10] VITALS: BMI 24.6
[2020-08-14] MEDS: amLODIPine 5 MG TAB PO SCH (18:04)
[2020-08-14] MEDS ORDERED: CYANOCOBALAMIN 500 MCG TAB PO SCH (21:00)
[2020-08-14] MEDS ORDERED: TAMSULOSIN 0.4 MG CAP.ER.24H PO SCH (21:00)
[2020-08-14] MEDS ORDERED: CHOLECALCIFEROL 1,000 UNIT TAB PO SCH (21:00)
[2020-08-14] MEDS ORDERED: PRAVASTATIN SODIUM 20 MG TAB PO SCH (21:00)
[2020-08-14 21:30] VITALS: RESP 16
--- NOTE | 2020-08-14 22:37 | P.HPIM ---
History of Present Illness H&P Date: 08/14/20 Chief Complaint: Fall History of presenting complaint: This is a pleasant 85-year-old patient of Dr. Mari. He presented to the ER. About 10 days ago he had a mechanical fall white count was sent down on the bathroom toilet and hit his buttock area on the edge of the toilet seat and fell down landing on his buttocks. Did not hit his head and neck. Since that time his been having significant oral pain in his lower back. Affecting his activities of daily living including walking. Sometimes he has to lay down for the same. No change in bowel or urinary pattern. He saw his family doctor sent him to the ER for the same. No fever no chills. No palpitations. Chronic stable medical conditions include atrial fibrillation, hard of hearing, hypertension, osteoarthritis, syncope episodes, pacemaker, kyphosis urinary incontinence. Review of systems: GEN.: Tired EYES: None HEENT: Decreased hearing NECK: None RESPIRATORY: None CARDIOVASCULAR: None GASTROINTESTINAL: None GENITOURINARY: Urinary incontinence] MUSCULOSKELETAL: As above LYMPHATICS: None HEMATOLOGICAL: None PSYCHIATRY: A bit forgetful NEUROLOGICAL: Does use a walker Past medical history to include: Atrial fibrillation, hard of hearing, hypertension, osteoarthritis, prostate disorder, obstructive sleep apnea, episodes of syncope, pacemaker, urinary incontinence Social history: Lives with his at [facility]. Has a walker shower chair CPAP machine. Patient smoked from 1945 through 1969. Half a pack a day and then switch to do one cigar daily until he stopped in 1969. No significant alcohol history. Physical examination: VITAL SIGNS: 97.1, 72, 20, 161/91, 96% room air GENERAL: BMI 24.6, laying in bed, awake. EYES: Pupils equal. Conjunctiva normal. HEENT: External appearance of nose and ears normal, oral cavity grossly normal decreased hearing. NECK: JVD not raised; masses not palpable. HEART: First and second heart sounds are normal; no edema. LUNGS: Respiratory rate normal; decreased breath sounds. ABDOMEN: Soft, nontender, liver spleen not palpable, no masses palpable. PSYCH: Alert and oriented x3; mood and affect normal MUSCULAR skeletal: Evidence of severe OA especially in the hands, kyphosis. NEUROLOGICAL: Cranial nerves grossly intact; no facial asymmetry, limited part of lower extremities and sensation grossly intact. LYMPHATICS: No lymph nodes palpable in the axilla and neck INVESTIGATIONS, reviewed in the clinical context: White count 6.9 hemoglobin 14 platelets 181 potassium 3.8 creatinine 0.76 Lumbar spine computed tomography scan-thoracolumbar dextroscoliotic deformity. DJD. 40% anterior wedging of L1. Multiple left-sided renal calculi. Assessment: -Subacute L1 fracture likely secondary to fall about 10 days ago-interfering with activities of daily living, including walking and causing pain -Left sided nephrolithiasis-asymptomatic -Persistent atrial fibrillation -Hard of hearing -Essential hypertension -Primary osteoarthritis -Obstructive sleep apnea uses CPAP machine -Chronic kidney dysfunction uses a walker -Kyphosis -BPH Plan: Home medications resumed. Lovenox for DVT prophylaxis. Orthopedic consulted. Fall precautions. Care was discussed the patient. Questions answered. We'll start the patient on naproxen, Tylenol, Flexeril. DC narcotic. Patient will require a brace. Patient be placed in observation. Past Medical History Past Medical History: Atrial Fibrillation, Hearing Disorder / Deafness, Hypertension, Osteoarthritis (OA), Prostate Disorder, Sleep Apnea/CPAP/BIPAP, Syncope Additional Past Medical History / Comment(s): HEP C- 1970's(never treated). DOZES OFF EASILY, SYNCOPE EPISODES, chronic back pain,, "got pacemaker because heart was stopping for a short time", constipation, kyphosis, wound on rt lower extremtiy-goes to [facility], urinary leakage, History of Any Multi-Drug Resistant Organisms: MRSA Date of last positivie culture/infection: 10/30/19 MDRO Source:: Right Leg Past Surgical History: Hernia Repair, Pacemaker Additional Past Surgical History / Comment(s): MENCKEL'S DIVERTICULUM. cyst excised off chest. HEMMORHOIDECTOMY,alice cataracts, on past medical hx tonsils listed but pt did'nt rememebr this.07-30-17 debridment of wound rt lower extremity. Past Anesthesia/Blood Transfusion Reactions: No Reported Reaction Additional Past Anesthesia/Blood Transfusion Reaction / Comment(s): states no problems with intubation/general anesthesia Type of Cardiac Device: Permanent Pacemaker Device Placement Date:: 02/2017 Past Psychological History: No Psychological Hx Reported Additional Psychological History / Comment(s): PT LIVES WITH AT [facility] [address] RECEIVED HOME CARE SERVICES (NADJA LINDSAY NAME) HAS WALKER, SHOWER CHAIR, CPAP MACHINE. Smoking Status: Former smoker Past Alcohol Use History: None Reported Additional Past Alcohol Use History / Comment(s): SMOKED [id number], 1/2 PPD for many years then swithced to 1 cigar daily until he quit 1969. Past Drug Use History: None Reported - Past Family History Father Family Medical History: Cancer Additional Family Medical History / Comment(s): pancreatic cancer Mother Family Medical History: Myocardial Infarction ([place]) Additional Family Medical History / Comment(s): father from cancer Medications and Allergies Home Medications Medication Instructions Recorded Confirmed Type Cholecalciferol [Vitamin D3 (25 1,000 unit PO HS 04/06/16 08/13/20 History Mcg = 1000 Iu)] Cyanocobalamin [Vitamin B-12] 1,000 mcg PO HS 04/06/16 08/13/20 History Famotidine [Pepcid] 20 mg PO DAILY 04/06/16 08/13/20 History Fish Oil/Dha/Epa [Fish Oil 1,200 2 cap PO HS 04/06/16 08/13/20 History mg Fish Oil] Pravastatin Sodium [Pravachol] 20 mg PO HS 07/19/17 08/13/20 History Metoprolol Tartrate [Lopressor] 50 mg PO BID #60 tab 08/25/17 08/13/20 Rx Tamsulosin [Flomax] 0.4 mg PO HS 10/18/17 08/13/20 History Acetaminophen [Tylenol Extra 500 mg PO Q4HR PRN 08/22/18 08/13/20 History Strength] Fluticasone Nasal [place] [Flonase 2 spr EA NOSTRIL DAILY PRN 08/13/20 08/13/20 History Nasal [place]] Propylene Glycol/Peg 400 [Systane 1 drop BOTH EYES HS PRN 08/13/20 08/13/20 History Ultra 0.4-0.3% Eye Drp] Zinc Oxide [Desitin] 1 applic TOPICAL DAILY 08/13/20 08/13/20 History amLODIPine [Norvasc] 5 mg PO HS 08/13/20 08/13/20 History Allergies Allergy/AdvReac Type Severity Reaction Status Date / Time No Known Allergies Allergy Verified 08/13/20 18:13 Physical Exam Vitals: Vital Signs Temp Pulse Pulse Resp BP BP Pulse Ox 08/14/20 04:51 97.4 F L 62 18 186/90 95 08/14/20 00:00 70 116/73 95 08/13/20 21:00 84 16 146/83 94 L 08/13/20 19:23 66 18 186/93 97 08/13/20 16:21 97.1 F L 72 20 161/91 96 Intake and Output 08/13/20 08/14/20 08/14/20 22:59 06:59 14:59 Intake Total 240 Balance 240 Intake: Oral 240 Other: Voiding Method Urinal # Voids 2 Weight 63.049 kg 63.049 kg Results CBC & Chem 7: 08/13/20 16:56 08/13/20 16:56 Labs: Abnormal Lab Results - Last 24 Hours (Table) 08/13/20 Range/Units 16:56 BUN 22 H (9-20) mg/dL Glucose 118 H (74-99) mg/dL Thrombosis Risk Factor Assmnt - Choose All That Apply Each Risk Factor Represents 3 Points: Age 75 years or older Thrombosis Risk Factor Assessment Total Risk Factor Score: 3 Thrombosis Risk Factor Assessment Level: Moderate Risk
[2020-08-15] MEDS: NAPROXEN 250 MG TAB PO SCH ×2 (00:14→08:35)
[2020-08-15] MEDS: CYCLOBENZAPRINE 10 MG TAB PO SCH ×2 (00:14→08:34)
[2020-08-15 04:42] VITALS: PULSE 60
[2020-08-15] MEDS: FAMOTIDINE 20 MG TAB PO SCH (08:34)
[2020-08-15] MEDS: ZINC OXIDE 20% OINT 28.4 GM TUBE TOPICAL SCH (08:35)
[2020-08-15] MEDS: METOPROLOL TARTRATE 50 MG TAB PO SCH (08:35)
[2020-08-15] MEDS: ENOXAPARIN 40 MG/0.4 ML SYRINGE SQ SCH (08:35)
[2020-08-15 12:35] VITALS: BP 147/73; TEMP 97.4
--- NOTE | 2020-08-15 22:58 | P.DS ---
Providers Date of admission: 08/13/20 23:37 Expected date of discharge: 08/15/20 Attending physician: Filipe Kelly Consults: 08/13/20 19:02 Consult Physician Stat Consulting Provider: Sammie Gonzalez Consult Reason/Comments: chronic back pain Do you want consulting provider notified?: Yes, Notify in am Consult Physician Stat Consulting Provider: Michelle Beasley Consult Reason/Comments: back pain, L1 compression fx Do you want consulting provider notified?: Yes, Notify in am [facility] Course: Chief Complaint: Fall History of presenting complaint: This is a pleasant 85-year-old patient of Dr. Mari. He presented to the ER. About 10 days ago he had a mechanical fall white count was sent down on the bathroom toilet and hit his buttock area on the edge of the toilet seat and fell down landing on his buttocks. Did not hit his head and neck. Since that time his been having significant oral pain in his lower back. Affecting his activities of daily living including walking. Sometimes he has to lay down for the same. No change in bowel or urinary pattern. He saw his family doctor sent him to the ER for the same. No fever no chills. No palpitations. Chronic stable medical conditions include atrial fibrillation, hard of hearing, hypertension, osteoarthritis, syncope episodes, pacemaker, kyphosis urinary incontinence. Patient is seen by [facility]. LSO brace was given. Patient given a cocktail of Tylenol, NSAIDs, antispasmodic. Pain better control. Today-discussed with the patient. Questions answered. He was educated about the brace. Consultation: Dr[facility] Physical examination: VITAL SIGNS: 97.4, 60, 16, 147 with 73, 94% room air GENERAL: BMI 24.6, laying in bed, awake. EYES: Pupils equal. Conjunctiva normal. HEENT: decreased hearing. NECK: JVD not raised; masses not palpable. HEART: First and second heart sounds are normal; no edema. LUNGS: Respiratory rate normal; decreased breath sounds. ABDOMEN: Soft, nontender, liver spleen not palpable, no masses palpable. PSYCH: Alert and oriented x3; mood and affect normal MUSCULAR skeletal: Evidence of severe OA especially in the hands, kyphosis. NEUROLOGICAL: Cranial nerves grossly intact; no facial asymmetry, limited part of lower extremities and sensation grossly intact. INVESTIGATIONS, reviewed in the clinical context: White count 6.9 hemoglobin 14 platelets 181 potassium 3.8 creatinine 0.76 Lumbar spine computed tomography scan-thoracolumbar dextroscoliotic deformity. DJD. 40% anterior wedging of L1. Multiple left-sided renal calculi. Assessment: -Subacute L1 fracture likely secondary to fall about 10 days ago-interfering with activities of daily living, including walking and causing pain-given a LSO brace. -Left sided nephrolithiasis-asymptomatic -Persistent atrial fibrillation -Hard of hearing -Essential hypertension -Primary osteoarthritis -Obstructive sleep apnea uses CPAP machine -Chronic gait dysfunction uses a walker -Kyphosis -BPH Disposition: Home. Patient Condition at Discharge: Stable Plan - Discharge Summary Discharge Rx Participant: Yes New Discharge Prescriptions: New Cyclobenzaprine [Flexeril] 5 mg PO TID PRN #20 tab PRN Reason: Spasms Naproxen [Naprosyn] 250 mg PO TID #30 tab Continue Cholecalciferol [Vitamin D3 (25 Mcg = 1000 Iu)] 1,000 unit PO HS Fish Oil/Dha/Epa [Fish Oil 1,200 mg Fish Oil] 2 cap PO HS Cyanocobalamin [Vitamin B-12] 1,000 mcg PO HS Pravastatin Sodium [Pravachol] 20 mg PO HS Metoprolol Tartrate [Lopressor] 50 mg PO BID #60 tab Tamsulosin [Flomax] 0.4 mg PO HS Acetaminophen [Tylenol Extra Strength] 500 mg PO Q4HR PRN PRN Reason: Pain amLODIPine [Norvasc] 5 mg PO HS Fluticasone Nasal [place] [Flonase Nasal [place]] 2 spr EA NOSTRIL DAILY PRN PRN Reason: Allergy Symptoms Propylene Glycol/Peg 400 [Systane Ultra 0.4-0.3% Eye Drp] 1 drop BOTH EYES HS PRN PRN Reason: dry eyes Zinc Oxide [Desitin] 1 applic TOPICAL DAILY Changed Famotidine [Pepcid] 20 mg PO BID #0 Discharge Medication List Cholecalciferol [Vitamin D3 (25 Mcg = 1000 Iu)] 1,000 unit PO HS 04/06/16 [History] Cyanocobalamin [Vitamin B-12] 1,000 mcg PO HS 04/06/16 [History] Fish Oil/Dha/Epa [Fish Oil 1,200 mg Fish Oil] 2 cap PO HS 04/06/16 [History] Pravastatin Sodium [Pravachol] 20 mg PO HS 07/19/17 [History] Metoprolol Tartrate [Lopressor] 50 mg PO BID #60 tab 08/25/17 [Rx] Tamsulosin [Flomax] 0.4 mg PO HS 10/18/17 [History] Acetaminophen [Tylenol Extra Strength] 500 mg PO Q4HR PRN 08/22/18 [History] Fluticasone Nasal [place] [Flonase Nasal [place]] 2 spr EA NOSTRIL DAILY PRN 08/13/20 [History] Propylene Glycol/Peg 400 [Systane Ultra 0.4-0.3% Eye Drp] 1 drop BOTH EYES HS PRN 08/13/20 [History] Zinc Oxide [Desitin] 1 applic TOPICAL DAILY 08/13/20 [History] amLODIPine [Norvasc] 5 mg PO HS 08/13/20 [History] Cyclobenzaprine [Flexeril] 5 mg PO TID PRN #20 tab 08/15/20 [Rx] Famotidine [Pepcid] 20 mg PO BID #0 08/15/20 [Rx] Naproxen [Naprosyn] 250 mg PO TID #30 tab 08/15/20 [Rx] Follow up Appointment(s)/Referral(s): Que Mari MD [Primary Care Provider] - 1-2 days Tea Tariq [NON-STAFF] - 1-2 Days Elias Munguia PAC [PHYSICIAN GLASS CHECKER] - 2 Weeks (Patient may follow-up with Elias Munguia PA-C or Dr. Obey Beasley at [facility] in 2-3 weeks following discharge. ) Cristal Cordova [NON-STAFF] - (supplier of back brace) Patient Instructions/Handouts: Naproxen (By mouth), Cyclobenzaprine (By mouth), Low Back Strain (DC) Activity/Diet/Wound Care/Special Instructions: 1. Patient may wear LSO brace for comfort and support while sitting upright at greater than 45, while working with therapy, and while ambulating; patient does not have to wear the brace while lying in bed or bathing 2. Patient should avoid excessive bending, twisting, and lifting; no lifting g reater than 10 pounds Discharge Disposition: HOME WITH HOME HEALTH SERVICES
== END 2020-08-15 13:12 | disposition home health service (06) ==
LOC: EC 16:03 → 5NMEDONC 23:37 → INTOOBSV 23:37
PROVIDERS: ADMIT Hospitalist; ATTEND Hospitalist
DX: S32.019A Unspecified fracture of first lumbar vertebra, initial encounter for closed fracture (principal); W18.30XA Fall on same level, unspecified, initial encounter; M41.86 Other forms of scoliosis, lumbar region; M51.16 Intervertebral disc disorders with radiculopathy, lumbar region; M48.061 Spinal stenosis, lumbar region without neurogenic claudication; M47.26 Other spondylosis with radiculopathy, lumbar region; N20.0 Calculus of kidney; I48.19 Other persistent atrial fibrillation; H91.90 Unspecified hearing loss, unspecified ear; I10 Essential (primary) hypertension; G47.33 Obstructive sleep apnea (adult) (pediatric); Z99.89 Dependence on other enabling machines and devices; G89.29 Other chronic pain; M54.9 Dorsalgia, unspecified; K59.00 Constipation, unspecified; R26.2 Difficulty in walking, not elsewhere classified; M40.209 Unspecified kyphosis, site unspecified; N40.0 Benign prostatic hyperplasia without lower urinary tract symptoms; R55 Syncope and collapse; R32 Unspecified urinary incontinence; Z87.891 Personal history of nicotine dependence; M19.91 Primary osteoarthritis, unspecified site; Z86.19 Personal history of other infectious and parasitic diseases; Z95.0 Presence of cardiac pacemaker; T14.8XXD Other injury of unspecified body region, subsequent encounter; Z86.14 Personal history of Methicillin resistant Staphylococcus aureus infection; Z98.42 Cataract extraction status, left eye; Z98.41 Cataract extraction status, right eye; Z98.890 Other specified postprocedural states; Z79.1 Long term (current) use of non-steroidal anti-inflammatories (NSAID); Z79.899 Other long term (current) drug therapy; Z80.0 Family history of malignant neoplasm of digestive organs; Z82.49 Family history of ischemic heart disease and other diseases of the circulatory system
CPT/HCPCS: 96376; 96372 ×2; 96374; 99285; 36415; 80053; 85025; 85610; 85730; 72131; G0378 ×2; G0480; J2270 ×2; J1650 ×2; 80329

== ENCOUNTER 2020-11-15 18:21 | Inpatient (IN) | payer MEDICARE, BC ==
--- NOTE | 2020-11-15 18:51 | ED ---
General Adult HPI - General Chief complaint: Abdominal Pain Stated complaint: constipation Time Seen by Provider: 11/15/20 18:43 Source: patient Mode of arrival: ambulatory Limitations: no limitations - History of Present Illness Initial comments: Patient presents the ED with his son for evaluation. Patient states that he has hemorrhoids, and he states that he has not had a bowel movement in the past week or so. Patient's son states that they have tried Senokot and Dulcolax without any success. Patient admits to having rectal pain and mild generalized abdominal pain. Patient denies fever or chills, headache, focal numbness/weakness/neuro deficit, chest pain, dyspnea, dizziness, nausea or vomiting, diarrhea, bloody or melanotic stool, dysuria/hematuria/urinary frequency/urinary symptoms, or any other symptoms or complaints. - Related Data Home Medications Medication Instructions Recorded Confirmed Cholecalciferol [Vitamin D3 (25 1,000 unit PO HS 04/06/16 11/15/20 Mcg = 1000 Iu)] Cyanocobalamin [Vitamin B-12] 1,000 mcg PO HS 04/06/16 11/15/20 Fish Oil/Dha/Epa [Fish Oil 1,200 2 cap PO HS 04/06/16 11/15/20 mg Fish Oil] Pravastatin Sodium [Pravachol] 20 mg PO HS 07/19/17 11/15/20 Tamsulosin [Flomax] 0.4 mg PO HS 10/18/17 11/15/20 Acetaminophen [Tylenol Extra 500 mg PO Q4HR PRN 08/22/18 11/15/20 Strength] Fluticasone Nasal [place] [Flonase 2 spr EA NOSTRIL DAILY PRN 08/13/20 11/15/20 Nasal [place]] Propylene Glycol/Peg 400 [Systane 1 drop BOTH EYES HS PRN 08/13/20 11/15/20 Ultra 0.4-0.3% Eye Drp] Zinc Oxide [Desitin] 1 applic TOPICAL DAILY PRN 08/13/20 11/15/20 amLODIPine [Norvasc] 5 mg PO HS 08/13/20 11/15/20 Famotidine [Pepcid] 20 mg PO BID PRN 11/15/20 11/15/20 Mirabegron [Myrbetriq] 25 mg PO HS 11/15/20 11/15/20 Naproxen [Naprosyn] 250 mg PO BID PRN 11/15/20 11/15/20 predniSONE See Taper PO DIRECTED 11/15/20 11/15/20 traMADol HCL 50 - 100 mg PO Q6H PRN 11/15/20 11/15/20 Previous Rx's Medication Instructions Recorded Metoprolol Tartrate [Lopressor] 50 mg PO BID #60 tab 08/25/17 Cyclobenzaprine [Flexeril] 5 mg PO TID PRN #20 tab 08/15/20 Allergies Allergy/AdvReac Type Severity Reaction Status Date / Time No Known Allergies Allergy Verified 11/15/20 22:54 Review of Systems ROS Statement: Those systems with pertinent positive or pertinent negative responses have been documented in the HPI. ROS Other: All systems not noted in ROS Statement are negative. Past Medical History Past Medical History: Atrial Fibrillation, Hearing Disorder / Deafness, Hy pertension, Osteoarthritis (OA), Prostate Disorder, Sleep Apnea/CPAP/BIPAP, Syncope Additional Past Medical History / Comment(s): HEP C- 1970's(never treated). DOZES OFF EASILY, SYNCOPE EPISODES, chronic back pain,, "got pacemaker because heart was stopping for a short time", constipation, kyphosis, wound on rt lower extremtiy-goes to c, urinary leakage, History of Any Multi-Drug Resistant Organisms: MRSA Date of last positivie culture/infection: 10/30/19 MDRO Source:: Right Leg Past Surgical History: Hernia Repair, Pacemaker Additional Past Surgical History / Comment(s): MENCKEL'S DIVERTICULUM. cyst excised off chest. HEMMORHOIDECTOMY,alice cataracts, on past medical hx tonsils listed but pt did'nt rememebr this.07-30-17 debridment of wound rt lower extremity. Past Anesthesia/Blood Transfusion Reactions: No Reported Reaction Additional Past Anesthesia/Blood Transfusion Reaction / Comment(s): states no problems with intubation/general anesthesia Type of Cardiac Device: Permanent Pacemaker Device Placement Date:: 02/2017 Past Psychological History: No Psychological Hx Reported Smoking Status: Former smoker Past Alcohol Use History: None Reported Past Drug Use History: None Reported - Past Family History Father Family Medical History: Cancer Additional Family Medical History / Comment(s): pancreatic cancer Mother Family Medical History: Myocardial Infarction ([place]) Additional Family Medical History / Comment(s): father from cancer General Exam Limitations: no limitations General appearance: alert, in no apparent distress Head exam: Present: atraumatic, normocephalic Eye exam: Present: normal appearance, EOMI ENT exam: Present: mucous membranes moist Neck exam: Present: other (Trachea is in midline) Respiratory exam: Present: normal lung sounds bilaterally. Absent: respiratory distress, wheezes, rales, rhonchi, stridor Cardiovascular Exam: Present: regular rate, normal rhythm, normal heart sounds, other (Normal radial pulses bilaterally) GI/Abdominal exam: Present: soft, diminished bowel sounds. Absent: distended, tenderness, guarding Rectal exam: Present: other (a small amount of brown stool was digitally removed from the patient's rectal vault) Extremities exam: Absent: tenderness, pedal edema Neurological exam: Present: alert, oriented X3. Absent: motor sensory deficit Psychiatric exam: Present: normal affect, normal mood Skin exam: Present: warm, dry, intact, normal color Course Vital Signs 11/15/20 11/15/20 18:23 20:50 Temperature 97.8 F Pulse Rate 67 72 Respiratory 18 16 Rate Blood Pressure 218/108 117/113 O2 Sat by Pulse 100 98 Oximetry - Reevaluation(s) Reevaluation #1: 11/15/20 21:05 Patient's son states that the patient's mental status has changed after IV morphine was given in the ED. Patient is now moaning at times, but is still responsive. A noncontrast head CT has been ordered. 11/15/20 22:32 Patient is now quite restless and anxious in appearance. I'm not sure if this change in the patient's mental status is secondary to the morphine that he received in the ED, secondary to his constipation, or some other etiology. Patient's head CT report is still pending at this time. Ativan 1 mg IV has been ordered. Patient's abdomen remains soft on examination. 11/15/20 23:05 Case, H&P, test results and ED management were discussed with Dr. Kelly. He accepts hospital admission. He has no further recommendations at this time. Medical Decision Making - Medical Decision Making Patient had very little results in the way of bowel movement with soap suds enema given in the ED. Patient's abdomen remains soft and nontender in exam. Patient became restless and developed altered mentation after IV morphine was a dministered in the ED. Patient's head CT is negative. Given that the patient has yet to return to his baseline mental status, will admit the patient to the hospital for observation and further evaluation. Dr. Kelly has accepted hospital admission. - Lab Data Result diagrams: 11/15/20 19:26 11/15/20 19:26 Lab Results 11/15/20 11/15/20 Range/Units 19:26 19:26 WBC 13.0 H (3.8-10.6) k/uL RBC 4.71 (4.30-5.90) m/uL Hgb 15.2 (13.0-17.5) gm/dL Hct 44.0 (39.0-53.0) % MCV 93.4 (80.0-100.0) fL MCH 32.2 (25.0-35.0) pg MCHC 34.5 (31.0-37.0) g/dL RDW 12.2 (11.5-15.5) % Plt Count 186 (150-450) k/uL MPV 8.1 Neutrophils % 73 % Lymphocytes % 19 % Monocytes % 7 % Eosinophils % 1 % Basophils % 0 % Neutrophils # 9.5 H (1.3-7.7) k/uL Lymphocytes # 2.4 (1.0-4.8) k/uL Monocytes # 0.9 (0-1.0) k/uL Eosinophils # 0.1 (0-0.7) k/uL Basophils # 0.0 (0-0.2) k/uL Sodium 137 (137-145) mmol/L Potassium 4.8 (3.5-5.1) mmol/L Chloride 104 (98-107) mmol/L Carbon Dioxide 26 (22-30) mmol/L Anion Gap 7 mmol/L BUN 23 H (9-20) mg/dL Creatinine 0.70 (0.66-1.25) mg/dL Est GFR (CKD-EPI)AfAm >90 (>60 ml/min/1.73 sqM) Est GFR (CKD-EPI)NonAf 85 (>60 ml/min/1.73 sqM) Glucose 96 (74-99) mg/dL Calcium 10.0 (8.4-10.2) mg/dL Total Bilirubin 0.9 (0.2-1.3) mg/dL AST 41 (17-59) U/L ALT 37 (4-49) U/L Alkaline Phosphatase 74 (38-126) U/L Total Protein 7.3 (6.3-8.2) g/dL Albumin 4.2 (3.5-5.0) g/dL Lipase 208 (23-300) U/L - Radiology Data Radiology results: report reviewed (Abdominal x-rays: Constipation, scoliotic deformity, possible left renal calculus, no significant change; noncontrast head CT shows no acute intracranial abnormality) Disposition Clinical Impression: Constipation, Altered mental status Disposition: ADMITTED IP TO THIS [facility] Condition: Stable Is patient prescribed a controlled substance at d/c from ED?: No Decision Time: 23:08
--- NOTE | 2020-11-15 19:36 | XR ---
EXAMINATION TYPE: XR abdomen complete w decub DATE OF EXAM: 11/15/2020 COMPARISON: 03/08/2020 HISTORY: Constipation TECHNIQUE: Upright supine and decubitus views were obtained. FINDINGS: There is some retained fecal material in the large bowel. There is lumbar dextroscoliosis. There is multilevel spondylotic changes in the lumbar spine. There is a 10 mm calcification over the lower pole left kidney. There is no evidence of abdominal mass. Lung bases are clear. IMPRESSION: Constipation. Scoliotic deformity. Possible left renal calculus. No significant change.
[2020-11-15] MEDS ORDERED: MORPHINE SULFATE 4 MG/ML SYRINGE IVP STA (20:01)
[2020-11-15 20:09] LABS: Basophils % (A) 0 %; Eosinophils # (A) 0.1 k/uL (0-0.7); Eosinophils % (A) 1 %; HGB 15.2 gm/dL (13.0-17.5); Lymphocytes # (A) 2.4 k/uL (1.0-4.8); Lymphocytes % (A) 19 %; MCH 32.2 pg (25.0-35.0); MCHC 34.5 g/dL (31.0-37.0); MCV 93.4 fL (80.0-100.0); Mean Platelet Volume 8.1; Monocytes # (A) 0.9 k/uL (0-1.0); Monocytes % (A) 7 %; Neutrophils # (A) 9.5 k/uL (1.3-7.7); Neutrophils % (A) 73 %; Platelet Count 186 k/uL (150-450); RBC 4.71 m/uL (4.30-5.90); RDW 12.2 % (11.5-15.5)
[2020-11-15 20:13] LABS: ALT 37 U/L (4-49); AST 41 U/L (17-59); African American GFR (CKD) >90 (>60 ml/min/1.73 sqM); Albumin 4.2 g/dL (3.5-5.0); Alkaline Phosphatase 74 U/L (38-126); Anion Gap 7 mmol/L; Blood Urea Nitrogen 23 mg/dL (9-20); Carbon Dioxide 26 mmol/L (22-30); Chloride 104 mmol/L (98-107); Glucose 96 mg/dL (74-99); Lipase 208 U/L (23-300); Non-African American GFR(CKD) 85 (>60 ml/min/1.73 sqM); Sodium 137 mmol/L (137-145); Total Bilirubin 0.9 mg/dL (0.2-1.3); Total Protein 7.3 g/dL (6.3-8.2)
[2020-11-15 20:21] LABS: Potassium 4.8 mmol/L (3.5-5.1)
[2020-11-15] MEDS ORDERED: LORazepam 2 MG/ML INJ IV STA ×2 (22:32→23:11)
--- NOTE | 2020-11-15 22:42 | CT ---
EXAMINATION TYPE: CT brain wo con DATE OF EXAM: 11/15/2020 COMPARISON: None HISTORY: Weakness, confusion CT DLP: 1147.4 mGycm Automated exposure control for dose reduction was used. There is cerebral atrophy. There is no mass effect nor midline shift. There is no sign of intracrania l hemorrhage. There is some enlargement of the ventricles. There is patchy hypodensity in the periven tricular white matter. Calvarium is intact. There is normal aeration of the mastoid sinuses. IMPRESSION: Cerebral atrophy and chronic small vessel ischemia. No acute intracranial abnormality. Mild hydroceph alus. No hemorrhage.
[2020-11-16] MEDS: SODIUM CHLORIDE 0.9% 1,000 ML IV SCH ×2 (00:09→16:31)
[2020-11-16 06:17] LABS: Basophils % (A) 0 %; Eosinophils # (A) 0.1 k/uL (0-0.7); Eosinophils % (A) 0 %; HGB 15.6 gm/dL (13.0-17.5); Lymphocytes # (A) 1.5 k/uL (1.0-4.8); Lymphocytes % (A) 9 %; MCH 30.8 pg (25.0-35.0); MCHC 33.1 g/dL (31.0-37.0); Mean Platelet Volume 7.5; Monocytes # (A) 1.3 k/uL (0-1.0); Monocytes % (A) 8 %; Neutrophils # (A) 14.4 k/uL (1.3-7.7); Neutrophils % (A) 83 %; Platelet Count 233 k/uL (150-450); RBC 5.05 m/uL (4.30-5.90); RDW 12.5 % (11.5-15.5); WBC 17.4 k/uL (3.8-10.6)
[2020-11-16 06:28] LABS: ALT 38 U/L (4-49); AST 34 U/L (17-59); African American GFR (CKD) >90 (>60 ml/min/1.73 sqM); Albumin 4.3 g/dL (3.5-5.0); Alkaline Phosphatase 79 U/L (38-126); Anion Gap 9 mmol/L; Blood Urea Nitrogen 20 mg/dL (9-20); Calcium 9.8 mg/dL (8.4-10.2); Carbon Dioxide 28 mmol/L (22-30); Chloride 102 mmol/L (98-107); Glucose 137 mg/dL (74-99); Non-African American GFR(CKD) 80 (>60 ml/min/1.73 sqM); Potassium 3.9 mmol/L (3.5-5.1); Sodium 139 mmol/L (137-145); Total Protein 7.2 g/dL (6.3-8.2)
[2020-11-16] MEDS ORDERED: cloNIDine 0.2 MG/24HR PATCH TRANSDERM SCH (09:00)
[2020-11-16] MEDS ORDERED: bisacodyL 10 MG SUPP RECTAL STA (11:28)
[2020-11-16] MEDS ORDERED: ARTIFICIAL TEARS-HYPROMELLOSE DROPS 15 ML BTL BOTH EYES PRN (11:29)
[2020-11-16] MEDS ORDERED: FAMOTIDINE 20 MG TAB PO PRN (11:29)
[2020-11-16] MEDS ORDERED: CYCLOBENZAPRINE 5 MG TAB PO PRN (11:29)
[2020-11-16] MEDS: METOPROLOL TARTRATE 50 MG TAB PO SCH ×2 (13:07→21:55)
[2020-11-16] MEDS: HYDROCORTISONE SUPPOSITORY 25 MG SUPP RECTAL SCH ×2 (13:09→22:00)
[2020-11-16] MEDS ORDERED: amLODIPine 5 MG TAB PO SCH (21:00)
[2020-11-16] MEDS: TAMSULOSIN 0.4 MG CAP.ER.24H PO SCH (21:55)
--- NOTE | 2020-11-16 22:29 | P.HPIM ---
History of Present Illness H&P Date: 11/16/20 Chief Complaint: No bowel movement History of presenting complaint: This is a pleasant 85-year-old patient who follows with Dr. Mari. Chronic stable medical conditions include atrial fibrillation, hard of hearing, Asya arthritis, prostate disorder, chronic back pain, pacemaker, chronic constipation, urinary incontinence. Patient has a history of hemorrhoidectomy. Patient is brought into the ER by his son as he was complaining of pain around the rectal area. Patient has a long-standing history of constipation. On this occasion patient has not had a bowel movement for about 7 days. According to son patient has not been eating much. Patient is given a dose of morphine in the ER patient became increasingly confused. Hence was admitted. Patient has slowly been forgetful but was able to manage pretty well. He lives with his at [facility]. Seen independent apartments. Has a walker. And CPAP machine. Patient was rather confused lethargic this morning. And a sitter was ordered. Additional history is obtained by the son in the evening. Admitting review of systems could not be done as patient is rather confused for additional history see above Past medical history to include: Atrial fibrillation, hard of hearing, hypertension, osteoarthritis, prostate disorder, obstructive sleep apnea, hepatitis C, chronic back pain, permanent pacemaker, constipation, kyphosis urinary incontinence, uses a walker Social history: Lives with his at [facility] seen independent apartments, has some home care services, has a CPAP machine has a walker. Patient smoked half a pack a day didn't swished to cigars a smoked from 1945 through 1969. No alcohol. Family history: Patient cannot tell Physical examination: VITAL SIGNS: 98.8, 96, 1 79 x 96, 97% room air GENERAL: BMI 21.8, laying in bed, lethargic. EYES: Pupils equal. Conjunctiva normal. HEENT: External appearance of nose and ears normal, oral cavity grossly normal. NECK: JVD unable to assess; masses not palpable. HEART: First and second heart sounds are normal; no edema. LUNGS: Respiratory rate normal; decreased breath sounds. ABDOMEN: Soft, nontender, liver spleen not palpable, no masses palpable. RECTAL exam: I do not see any external hemorrhoids. Anal opening is rather patulous. Cannot rule out a posterior fissure at the 6 o'clock position PSYCH: Patient rather lethargic male answer occasional questionl. NEUROLOGICAL: [Cranial nerves grossly intact; no facial asymmetry, moving all 4 limbs MUSCULOSKELETAL: Evidence of OA especially in the hands LYMPHATICS: No lymph nodes palpable in the axilla and neck INVESTIGATIONS, reviewed in the clinical context: White count 7.4 hemoglobin 15.6 platelets 233 potassium 3.9 creatinine 0.81 Computed tomography scan of the brain shows cerebral atrophy and chronic small vessel ischemia Abdominal x-ray film personally reviewed by me shows-retained stool Assessment and plan: -Perirectal pain possibly from a posterior fissure. In the patient's had chronic constipation. Will use Anusol HC. -Acute on chronic obstipation. We'll start the patient on Metamucil twice daily. Also encourage oral intake. -Cognitive impairment from underlying Alzheimer's dementia. We'll further reevaluate when patient is more awake tomorrow. -Acute delirium from having received IV morphine in the ER, leading to acute leigh tation -Persistent atrial fibrillation -Essential hypertension. Patient not able to take oral medication this morning. Catapres patch was placed -Permanent pacemaker -Primary osteoarthritis to use Tylenol when necessary -Obstructive sleep apnea may use CPAP from home -Chronic kyphosis -Chronic gait dysfunction continues a walker. Currently fall precautions I came back in the evening to speak to the patient's son at length. Care was discussed. Will try to get patient back into his sleep awake cycle. Questions were answered at length. We'll see how he does overnight. Discussed with the nurse. Past Medical History Past Medical History: Atrial Fibrillation, Hearing Disorder / Deafness, Hypertension, Osteoarthritis (OA), Prostate Disorder, Sleep Apnea/CPAP/BIPAP, Syncope Additional Past Medical History / Comment(s): HEP C- 1970's(never treated). DOZES OFF EASILY, SYNCOPE EPISODES, chronic back pain,, "got pacemaker because heart was stopping for a short time", constipation, kyphosis, wound on rt lower extremtiy-goes to [facility], urinary leakage, History of Any Multi-Drug Resistant Organisms: MRSA Date of last positivie culture/infection: 10/30/19 MDRO Source:: Right Leg Past Surgical History: Hernia Repair, Pacemaker Additional Past Surgical History / Comment(s): MENCKEL'S DIVERTICULUM. cyst excised off chest. HEMMORHOIDECTOMY,alice cataracts, on past medical hx tonsils listed but pt did'nt rememebr this.07-30-17 debridment of wound rt lower extremity. Past Anesthesia/Blood Transfusion Reactions: No Reported Reaction Additional Past Anesthesia/Blood Transfusion Reaction / Comment(s): states no problems with intubation/general anesthesia Type of Cardiac Device: Permanent Pacemaker Device Placement Date:: 02/2017 Smoking Status: Former smoker - Past Family History Father Family Medical History: Cancer Additional Family Medical History / Comment(s): pancreatic cancer Mother Family Medical History: Myocardial Infarction ([place]) Additional Family Medical History / Comment(s): father from cancer Medications and Allergies Home Medications Medication Instructions Recorded Confirmed Type Cholecalciferol [Vitamin D3 (25 1,000 unit PO HS 04/06/16 11/15/20 History Mcg = 1000 Iu)] Cyanocobalamin [Vitamin B-12] 1,000 mcg PO HS 04/06/16 11/15/20 History Fish Oil/Dha/Epa [Fish Oil 1,200 2 cap PO HS 04/06/16 11/15/20 History mg Fish Oil] Pravastatin Sodium [Pravachol] 20 mg PO HS 07/19/17 11/15/20 History Metoprolol Tartrate [Lopressor] 50 mg PO BID #60 tab 08/25/17 11/15/20 Rx Tamsulosin [Flomax] 0.4 mg PO HS 10/18/17 11/15/20 History Acetaminophen [Tylenol Extra 500 mg PO Q4HR PRN 08/22/18 11/15/20 History Strength] Fluticasone Nasal [place] [Flonase 2 spr EA NOSTRIL DAILY PRN 08/13/20 11/15/20 History Nasal [place]] Propylene Glycol/Peg 400 [Systane 1 drop BOTH EYES HS PRN 08/13/20 11/15/20 History Ultra 0.4-0.3% Eye Drp] Zinc Oxide [Desitin] 1 applic TOPICAL DAILY PRN 08/13/20 11/15/20 History amLODIPine [Norvasc] 5 mg PO HS 08/13/20 11/15/20 History Cyclobenzaprine [Flexeril] 5 mg PO TID PRN #20 tab 08/15/20 11/15/20 Rx Famotidine [Pepcid] 20 mg PO BID PRN 11/15/20 11/15/20 History Mirabegron [Myrbetriq] 25 mg PO HS 11/15/20 11/15/20 History Naproxen [Naprosyn] 250 mg PO BID PRN 11/15/20 11/15/20 History predniSONE See Taper PO DIRECTED 11/15/20 11/15/20 History traMADol HCL 50 - 100 mg PO Q6H PRN 11/15/20 11/15/20 History Allergies Allergy/AdvReac Type Severity Reaction Status Date / Time No Known Allergies Allergy Verified 11/15/20 22:54 Physical Exam Vitals: Vital Signs Temp Pulse Pulse Resp BP BP Pulse Ox 11/16/20 08:43 96 179/96 97 11/16/20 04:18 98.8 F 125 H 18 178/101 96 11/16/20 00:42 99.4 F 75 16 162/98 92 L 11/15/20 20:50 72 16 117/113 98 11/15/20 18:23 97.8 F 67 18 218/108 100 Intake and Output 11/15/20 11/16/20 11/16/20 22:59 06:59 14:59 Intake Total 360 Balance 360 Intake: Intake, IV Titration 360 Amount Sodium Chloride 0.9% 1, 360 000 ml @ 60 mls/hr IV . [id number] [facility] Rx#:[id number] Other: Weight 63.049 kg 63.049 kg Results CBC & Chem 7: 11/16/20 05:33 11/16/20 05:33 Labs: Abnormal Lab Results - Last 24 Hours (Table) 11/15/20 11/15/20 11/16/20 Range/Units 19:26 19:26 05:33 WBC 13.0 H 17.4 H (3.8-10.6) k/uL Neutrophils # 9.5 H 14.4 H (1.3-7.7) k/uL Monocytes # 1.3 H (0-1.0) k/uL BUN 23 H (9-20) mg/dL Glucose (74-99) mg/dL 11/16/20 Range/Units 05:33 WBC (3.8-10.6) k/uL Neutrophils # (1.3-7.7) k/uL Monocytes # (0-1.0) k/uL BUN (9-20) mg/dL Glucose 137 H (74-99) mg/dL
[2020-11-17] MEDS: HYDROCORTISONE SUPPOSITORY 25 MG SUPP RECTAL SCH ×2 (08:25→10:02)
[2020-11-17] MEDS: METOPROLOL TARTRATE 50 MG TAB PO SCH ×2 (08:25→20:50)
[2020-11-17] MEDS: PSYLLIUM HUSK 100% 6 GM PACKET PO SCH ×2 (08:25→20:52)
[2020-11-17] MEDS: SODIUM CHLORIDE 0.9% 1,000 ML IV SCH (08:29)
[2020-11-17] MEDS ORDERED: LACTULOSE 20 GM/30 ML CUP PO ONE (14:34)
--- NOTE | 2020-11-17 14:37 | P.GSCN ---
History of Present Illness Consult date: 11/17/20 History of present illness: CHIEF COMPLAINT: Abdominal pain HISTORY OF PRESENT ILLNESS: This is a 85-year-old male with a known history of constipation, hemorrhoids, atrial fibrillation, hypertension, dementia, Meckel's diverticulum, hepatitis C, chronic back pain, permanent pacemaker. Patient is also had a hemorrhoidectomy several years ago. Patient presented to the emergency room with complaints of abdominal pain and rectal pain. He did notice some blood around the rectal area. Patient reports that his last bowel movement was about a week ago. In the ER they did give her a soapsuds enema with a small bowel movement reported. He did have abdominal xray that reported constipation. Surgical consult placed for abdominal pain. Patient does report some im provement since admission and his abdominal discomfort. Patient seen and examined with Dr. Mays PAST MEDICAL HISTORY: See list. PAST SURGICAL HISTORY: See list. MEDICATIONS: See list. ALLERGIES: See list. SOCIAL HISTORY: No illicit drug use. REVIEW OF SYSTEMS: CONSTITUTIONAL: Denies fever or chills. HEENT: Denies blurred vision, vision changes, or eye pain. Denies hemoptysis CARDIOVASCULAR: Denies chest pain or pressure. RESPIRATORY: No shortness of breath. GASTROINTESTINAL: See HPI for pertinent findings HEMATOLOGIC: Denies bleeding disorders. GENITOURINARY: Denies any blood in urine or increased urinary frequency. SKIN: Denies pruitis. Denies rash. PHYSICAL EXAM: VITAL SIGNS: Reviewed GENERAL: Well-developed in no acute distress. HEENT: No sclera icterus. Extraocular movements grossly intact. Moist buccal mucosa. Head is atraumatic, normocephalic. No nasal drainage. ABDOMEN: Soft. Mildly distended. Nontender NEUROLOGIC: Alert and oriented. Cranial nerves II through XII grossly intact. LABORATORY DATA: WBC 17.4 Hgb 15.6 LFTs and lipase normal IMAGING: Abdominal x-ray showing constipation Computed tomography scan of the brain cerebral atrophy and chronic small vessel ischemia. No acute intracranial abnormality. Mild hydrocephalus. No hemorrhag e ASSESSMENT: 1. Abdominal pain due to constipation 2. Rectal pain likely due to hemorrhoids that are inflamed due to his straining from constipation PLAN: -Recommend conservative treatment -We'll give Colace and lactulose -Continue Anusol HC suppositories for hemorrhoids Thank you for this consultation Physician Feeder Worker Power Unit Operator note has been reviewed by physician. Signing provider agrees with the documented findings, assessment, and plan of care. Past Medical History Past Medical History: Atrial Fibrillation, Hearing Disorder / Deafness, Hypertension, Osteoarthritis (OA), Prostate Disorder, Sleep Apnea/CPAP/BIPAP, Syncope Additional Past Medical History / Comment(s): HEP C- 1970's(never treated). DOZES OFF EASILY, SYNCOPE EPISODES, chronic back pain,, "got pacemaker because heart was stopping for a short time", constipation, kyphosis, wound on rt lower extremtiy-goes to [facility], urinary leakage, History of Any Multi-Drug Resistant Organisms: MRSA Year Discovered:: 10/30/19 MDRO Source:: Right Leg Past Surgical History: Hernia Repair, Pacemaker Additional Past Surgical History / Comment(s): MENCKEL'S DIVERTICULUM. cyst excised off chest. HEMMORHOIDECTOMY,alice cataracts, on past medical hx tonsils listed but pt did'nt rememebr this.07-30-17 debridment of wound rt lower extremity. Past Anesthesia/Blood Transfusion Reactions: No Reported Reaction Additional Past Anesthesia/Blood Transfusion Reaction / Comm: states no problems with intubation/general anesthesia Type of Cardiac Device: Permanent Pacemaker Device Placement Date:: 02/2017 Smoking Status: Former smoker - Past Family History Father Family Medical History: Cancer Additional Family Medical History / Comment(s): pancreatic cancer Mother Family Medical History: Myocardial Infarction ([place]) Additional Family Medical History / Comment(s): father from cancer Medications and Allergies Home Medications Medication Instructions Recorded Confirmed Type Cholecalciferol [Vitamin D3 (25 1,000 unit PO HS 04/06/16 11/15/20 History Mcg = 1000 Iu)] Cyanocobalamin [Vitamin B-12] 1,000 mcg PO HS 04/06/16 11/15/20 History Fish Oil/Dha/Epa [Fish Oil 1,200 2 cap PO HS 04/06/16 11/15/20 History mg Fish Oil] Pravastatin Sodium [Pravachol] 20 mg PO HS 07/19/17 11/15/20 History Metoprolol Tartrate [Lopressor] 50 mg PO BID #60 tab 08/25/17 11/15/20 Rx Tamsulosin [Flomax] 0.4 mg PO HS 10/18/17 11/15/20 History Acetaminophen [Tylenol Extra 500 mg PO Q4HR PRN 08/22/18 11/15/20 History Strength] Fluticasone Nasal [place] [Flonase 2 spr EA NOSTRIL DAILY PRN 08/13/20 11/15/20 History Nasal [place]] Propylene Glycol/Peg 400 [Systane 1 drop BOTH EYES HS PRN 08/13/20 11/15/20 History Ultra 0.4-0.3% Eye Drp] Zinc Oxide [Desitin] 1 applic TOPICAL DAILY PRN 08/13/20 11/15/20 History amLODIPine [Norvasc] 5 mg PO HS 08/13/20 11/15/20 History Cyclobenzaprine [Flexeril] 5 mg PO TID PRN #20 tab 08/15/20 11/15/20 Rx Famotidine [Pepcid] 20 mg PO BID PRN 11/15/20 11/15/20 History Mirabegron [Myrbetriq] 25 mg PO HS 11/15/20 11/15/20 History Naproxen [Naprosyn] 250 mg PO BID PRN 11/15/20 11/15/20 History predniSONE See Taper PO DIRECTED 11/15/20 11/15/20 History traMADol HCL 50 - 100 mg PO Q6H PRN 11/15/20 11/15/20 History Allergies Allergy/AdvReac Type Severity Reaction Status Date / Time No Known Allergies Allergy Verified 11/15/20 22:54 Surgical - Exam Vital Signs Temp Pulse Resp BP Pulse Ox 97.8 F 67 18 218/108 100 11/15/20 18:23 11/15/20 18:23 11/15/20 18:23 11/15/20 18:23 11/15/20 18:23 Results - Labs 11/16/20 05:33 11/16/20 05:33
--- NOTE | 2020-11-17 20:12 | P.PN ---
Progress Note - Text Progress Note Date: 11/17/20 Chief Complaint: No bowel movement History of presenting complaint: This is a pleasant 85-year-old patient who follows with Dr. Mari. Chronic stable medical conditions include atrial fibrillation, hard of hearing, Asya arthritis, prostate disorder, chronic back pain, pacemaker, chronic constipation, urinary incontinence. Patient has a history of hemorrhoidectomy. Patient is brought into the ER by his son as he was complaining of pain around the rectal area. Patient has a long-standing history of constipation. On this occasion patient has not had a bowel movement for about 7 days. According to son patient has not been eating much. Patient is given a dose of morphine in the ER patient became increasingly confused. Hence was admitted. Patient has slowly been forgetful but was able to manage pretty well. He lives with his at [facility]. Seen independent apartments. Has a walker. And CPAP machine. Patient was rather confused lethargic this morning. And a sitter was ordered. Additional history is obtained by the son in the evening. Admitted with severe constipation, possible pain from anal fissure. Acute delirium. Precipitated by morphine in the ER. Today-patient slept well last night. This morning answering questions better. Oral intake improved. Had a good bowel movement. Review of systems: Was done for constitutional, cardiovascular, GI, pulmonary. relevant finding as above Active Medications Acetaminophen (Acetaminophen Tab 500 Mg Tab) 500 mg PO Q4HR PRN PRN Reason: Pain Amlodipine Besylate (Amlodipine 5 Mg Tab) 5 mg PO HS [facility] Last Admin: 11/16/20 21:55 Dose: 5 mg Documented by: Artificial Tears (Artificial Tears-Hypromellose Drops 15 Ml Btl) 1 drops BOTH EYES HS PRN PRN Reason: dry eyes Clonidine HCl (Clonidine 0.2 Mg/24hr Patch) 1 patch TRANSDERM Q7D [facility] Last Admin: 11/16/20 10:12 Dose: 1 patch Documented by: Cyclobenzaprine HCl (Cyclobenzaprine 5 Mg Tab) 5 mg PO TID PRN PRN Reason: Spasms Docusate Sodium (Docusate 100 Mg Cap) 100 mg PO BID [facility] Famotidine (Famotidine 20 Mg Tab) 20 mg PO BID PRN PRN Reason: gerds Hydrocortisone Acetate (Hydrocortisone Suppository 25 Mg Supp) 25 mg RECTAL BID [facility] Last Admin: 11/17/20 10:02 Dose: 25 mg Documented by: Sodium Chloride (Saline 0.9%) 1,000 mls @ 60 mls/hr IV .[id number] [facility] Last Admin: 11/17/20 08:29 Dose: 60 mls/hr Documented by: Metoprolol Tartrate (Metoprolol Tartrate 50 Mg Tab) 50 mg PO BID [facility] Last Admin: 11/17/20 08:25 Dose: 50 mg Documented by: Psyllium Hydrophilic Mucilloid (Psyllium Husk 100% 6 Gm Packet) 6 gm PO BID [facility] Last Admin: 11/17/20 08:25 Dose: 6 gm Documented by: Tamsulosin HCl (Tamsulosin 0.4 Mg Cap.Er.24h) 0.4 mg PO HS [facility] Last Admin: 11/16/20 21:55 Dose: 0.4 mg Documented by: Past medical history to include: Atrial fibrillation, hard of hearing, hypertension, osteoarthritis, prostate disorder, obstructive sleep apnea, hepatitis C, chronic back pain, permanent pacemaker, constipation, kyphosis urinary incontinence, uses a walker Social history: Lives with his at [facility] seen independent apartments, has some home care services, has a CPAP machine has a walker. Patient smoked half a pack a day didn't swished to cigars a smoked from 1945 through 1969. No alcohol. Family history: Patient cannot tell Physical examination: VITAL SIGNS: 97.4, 65, 16, 123 with 71, 97% room air GENERAL: Laying in bed, more awake EYES: Pupils equal. Conjunctiva normal. HEENT: External appearance of nose and ears normal, oral cavity grossly normal. NECK: JVD unable to assess; masses not palpable. HEART: First and second heart sounds are normal; no edema. LUNGS: Respiratory rate normal; decreased breath sounds. ABDOMEN: Soft, nontender, liver spleen not palpable, no masses palpable. RECTAL exam: I do not see any external hemorrhoids. Anal opening is rather patulous. Cannot rule out a posterior fissure at the 6 o'clock position PSYCH: Answering simple questions MUSCULOSKELETAL: Evidence of OA especially in the hands INVESTIGATIONS, reviewed in the clinical context: White count 7.4 hemoglobin 15.6 platelets 233 potassium 3.9 creatinine 0.81 Computed tomography scan of the brain shows cerebral atrophy and chronic small vessel ischemia Abdominal x-ray film personally reviewed by me shows-retained stool Assessment and plan: -Perirectal pain possibly from anal fissure. From chronic constipation. Started on Anusol HC. -Acute on chronic obstipation. Admitted Metamucil twice daily. Also encourage oral intake. -Cognitive impairment from underlying Alzheimer's dementia. . -Acute delirium from having received IV morphine in the ER, leading to acute agitation-improved -Persistent atrial fibrillation -Essential hypertension. DC Catapres patch. Continue Lopressor. Increase Norvasc to 5 mg twice a day. -Permanent pacemaker -Primary osteoarthritis to use Tylenol when necessary -Obstructive sleep apnea may use CPAP from home -Chronic kyphosis -Chronic gait dysfunction continues a walker. Currently fall precautions Patient is definitely not stable to be discharged. Catapres patch discontinued. Encourage oral intake. DC IV fluids. Possibly DC to ECF
[2020-11-17] MEDS: amLODIPine 5 MG TAB PO SCH (20:50)
[2020-11-17] MEDS: DOCUSATE 100 MG CAP PO SCH (20:50)
[2020-11-17] MEDS: TAMSULOSIN 0.4 MG CAP.ER.24H PO SCH (20:50)
[2020-11-17] MEDS: CYANOCOBALAMIN 500 MCG TAB PO SCH (20:50)
[2020-11-17] MEDS: PRAVASTATIN SODIUM 20 MG TAB PO SCH (20:51)
[2020-11-17] MEDS: ACETAMINOPHEN TAB 500 MG TAB PO PRN (20:51)
[2020-11-17] MEDS: NON FORMULARY DRUG (Mirabegron [Myrbetriq] 25 MG Tab.Er.24h) PO SCH (22:25)
[2020-11-18] MEDS: amLODIPine 5 MG TAB PO SCH ×2 (08:43→22:48)
[2020-11-18] MEDS: DOCUSATE 100 MG CAP PO SCH ×2 (08:43→22:26)
[2020-11-18] MEDS: METOPROLOL TARTRATE 50 MG TAB PO SCH ×2 (08:43→22:48)
[2020-11-18] MEDS: PSYLLIUM HUSK 100% 6 GM PACKET PO SCH ×2 (08:43→22:26)
[2020-11-18] MEDS: HYDROCORTISONE SUPPOSITORY 25 MG SUPP RECTAL SCH ×2 (08:44→22:27)
[2020-11-18 09:10] LABS: Basophils % (A) 0 %; Eosinophils # (A) 0.7 k/uL (0-0.7); Eosinophils % (A) 6 %; HCT 44.2 % (39.0-53.0); HGB 14.2 gm/dL (13.0-17.5); Lymphocytes # (A) 1.9 k/uL (1.0-4.8); Lymphocytes % (A) 18 %; MCH 31.3 pg (25.0-35.0); MCHC 32.2 g/dL (31.0-37.0); MCV 97.1 fL (80.0-100.0); Mean Platelet Volume 7.2; Monocytes # (A) 0.5 k/uL (0-1.0); Monocytes % (A) 4 %; Neutrophils # (A) 7.7 k/uL (1.3-7.7); Neutrophils % (A) 71 %; Platelet Count 129 k/uL (150-450); RBC 4.55 m/uL (4.30-5.90); RDW 12.7 % (11.5-15.5); WBC 10.9 k/uL (3.8-10.6)
--- NOTE | 2020-11-18 13:48 | P.PN ---
Subjective Progress Note Date: 11/18/20 CHIEF COMPLAINT: Abdominal pain HISTORY OF PRESENT ILLNESS: Patient was seen and examined with Dr. Mays. Patient is being followed by surgical service regarding his abdominal pain, constipation and hemorrhoids. Patient is tolerating clear liquid diet. Last bowel movement was on Monday. No further bleeding per rectum. Patient appears comfortable no evidence of pain. Afebrile. WBC 10.9 hemoglobin 14.2 PHYSICAL EXAM: VITAL SIGNS: Reviewed. GENERAL: Well-developed in no acute distress. HEENT: No sclera icterus. Extraocular movements grossly intact. Moist buccal mucosa. Head is atraumatic, normocephalic. ABDOMEN: Soft. Nondistended. Nontender. NEUROLOGIC: Alert and oriented. Cranial nerves II through XII grossly intact. ASSESSMENT: 1. Abdominal pain due to constipation 2. Rectal pain likely due to hemorrhoids that are inflamed due to his straining from constipation PLAN: -No surgical intervention planned -Continue conservative treatment of constipation and hemorrhoids -Continue Colace and Metamucil -Continue Anusol cream for hemorrhoids -advance diet to regular Physician Air Defence Officer note has been reviewed by physician. Signing provider agrees with the documented findings, assessment, and plan of care. Objective - Vital Signs Vital signs: Vital Signs Temp 97.8 F 11/18/20 07:22 Pulse 60 11/18/20 07:22 Resp 16 11/18/20 07:22 BP 161/82 11/18/20 07:22 Pulse Ox 98 11/18/20 07:22 Intake & Output 11/17/20 11/18/20 11/18/20 18:59 06:59 18:59 Intake Total 540 Balance 540 Intake: Intake, IV Titration 540 Amount Sodium Chloride 0.9% 1, 540 000 ml @ 60 mls/hr IV . [id number] [facility] Rx#:[id number] Other: Voiding Method Diaper Diaper Diaper Incontinent Incontinent Incontinent # Voids 3 - Labs CBC & Chem 7: 11/18/20 08:34 11/16/20 05:33 Labs: Abnormal Lab Results - Last 24 Hours (Table) 11/18/20 Range/Units 08:34 WBC 10.9 H (3.8-10.6) k/uL Plt Count 129 L (150-450) k/uL
[2020-11-18] MEDS: ACETAMINOPHEN TAB 500 MG TAB PO PRN ×2 (15:13→22:38)
[2020-11-18] MEDS: PRAVASTATIN SODIUM 20 MG TAB PO SCH (22:25)
[2020-11-18] MEDS: CYANOCOBALAMIN 500 MCG TAB PO SCH (22:25)
[2020-11-18] MEDS: TAMSULOSIN 0.4 MG CAP.ER.24H PO SCH (22:26)
[2020-11-18] MEDS: NON FORMULARY DRUG (Mirabegron [Myrbetriq] 25 MG Tab.Er.24h) PO SCH (22:26)
--- NOTE | 2020-11-18 22:32 | P.PN ---
Progress Note - Text Progress Note Date: 11/18/20 Chief Complaint: No bowel movement History of presenting complaint: This is a pleasant 85-year-old patient who follows with Dr. Mari. Chronic stable medical conditions include atrial fibrillation, hard of hearing, Asya arthritis, prostate disorder, chronic back pain, pacemaker, chronic constipation, urinary incontinence. Patient has a history of hemorrhoidectomy. Patient is brought into the ER by his son as he was complaining of pain around the rectal area. Patient has a long-standing history of constipation. On this occasion patient has not had a bowel movement for about 7 days. According to son patient has not been eating much. Patient is given a dose of morphine in the ER patient became increasingly confused. Hence was admitted. Patient has slowly been forgetful but was able to manage pretty well. He lives with his at [facility]. Seen independent apartments. Has a walker. And CPAP machine. Patient was rather confused lethargic this morning. And a sitter was ordered. Additional history is obtained by the son in the evening. Admitted with severe constipation, possible pain from anal fissure. Acute delirium. Precipitated by morphine in the ER. Today-doing better. Oral intake better. Noticed a drop in patient's platelet. Review of systems: Was done for constitutional, cardiovascular, GI, pulmonary. relevant finding as above Active Medications Acetaminophen (Acetaminophen Tab 500 Mg Tab) 500 mg PO Q4HR PRN PRN Reason: Pain Last Admin: 11/18/20 15:13 Dose: 500 mg Documented by: Amlodipine Besylate (Amlodipine 5 Mg Tab) 5 mg PO BID [facility] Last Admin: 11/18/20 08:43 Dose: 5 mg Documented by: Artificial Tears (Artificial Tears-Hypromellose Drops 15 Ml Btl) 1 drops BOTH EYES HS PRN PRN Reason: dry eyes Cyanocobalamin (Cyanocobalamin 500 Mcg Tab) 1,000 mcg PO HS [facility] Last Admin: 11/17/20 20:50 Dose: 1,000 mcg Documented by: Cyclobenzaprine HCl (Cyclobenzaprine 5 Mg Tab) 5 mg PO TID PRN PRN Reason: Spasms Docusate Sodium (Docusate 100 Mg Cap) 100 mg PO BID [facility] Last Admin: 11/18/20 08:43 Dose: 100 mg Documented by: Famotidine (Famotidine 20 Mg Tab) 20 mg PO BID PRN PRN Reason: gerds Hydrocortisone Acetate (Hydrocortisone Suppository 25 Mg Supp) 25 mg RECTAL BID [facility] Last Admin: 11/18/20 08:44 Dose: 25 mg Documented by: Metoprolol Tartrate (Metoprolol Tartrate 50 Mg Tab) 50 mg PO BID [facility] Last Admin: 11/18/20 08:43 Dose: 50 mg Documented by: Non-Formulary Medication (Mirabegron [Myrbetriq]) 25 mg PO [facility] Last Admin: 11/17/20 22:25 Dose: Not Given Documented by: Pravastatin Sodium (Pravastatin Sodium 20 Mg Tab) 20 mg PO [facility] Last Admin: 11/17/20 20:51 Dose: 20 mg Documented by: Psyllium Hydrophilic Mucilloid (Psyllium Husk 100% 6 Gm Packet) 6 gm PO BID [facility] Last Admin: 11/18/20 08:43 Dose: 6 gm Documented by: Tamsulosin HCl (Tamsulosin 0.4 Mg Cap.Er.24h) 0.4 mg PO [facility] Last Admin: 11/17/20 20:50 Dose: 0.4 mg Documented by: Past medical history to include: Atrial fibrillation, hard of hearing, hypertension, osteoarthritis, prostate disorder, obstructive sleep apnea, hepatitis C, chronic back pain, permanent pacemaker, constipation, kyphosis urinary incontinence, uses a walker Social history: Lives with his at [facility] seen independent apartments, has some home care services, has a CPAP machine has a walker. Patient smoked half a pack a day didn't swished to cigars a smoked from 1945 through 1969. No alcohol. Family history: Patient cannot tell Physical examination: VITAL SIGNS: 97.6, 80, 18, 137 / 76, 97% room air GENERAL: Laying in bed, awake EYES: Pupils equal. Conjunctiva normal. HEENT: External appearance of nose and ears normal, oral cavity grossly normal. NECK: JVD unable to assess; masses not palpable. HEART: First and second heart sounds are normal; no edema. LUNGS: Respiratory rate normal; decreased breath sounds. ABDOMEN: Soft, nontender, liver spleen not palpable, no masses palpable. RECTAL exam: I do not see any external hemorrhoids. Anal opening is rather patulous. Cannot rule out a posterior fissure at the 6 o'clock position PSYCH: Answering simple questions MUSCULOSKELETAL: Evidence of OA especially in the hands INVESTIGATIONS, reviewed in the clinical context: November 18: White count 10.9 hemoglobin 14.2 platelets 129 White count 7.4 hemoglobin 15.6 platelets 233 potassium 3.9 creatinine 0.81 Computed tomography scan of the brain shows cerebral atrophy and chronic small vessel ischemia Abdominal x-ray film personally reviewed by me shows-retained stool Assessment and plan: -Perirectal pain possibly from anal fissure. From chronic constipation. Started on Anusol HC. -Acute on chronic obstipation. Started Metamucil twice daily. Also encourage oral intake. -Cognitive impairment from underlying Alzheimer's dementia. . -Acute delirium from having received IV morphine in the ER, leading to acute agitation-improved -Persistent atrial fibrillation -Essential hypertension. DC Catapres patch. Continue Lopressor. Norvasc to 5 mg twice a day. Keep a close eye on blood pressure. -Permanent pacemaker -Primary osteoarthritis to use Tylenol when necessary -Obstructive sleep apnea may use CPAP from home -Chronic kyphosis -Chronic gait dysfunction continues a walker. Currently fall precautions -New onset thrombocytopenia. Repeat CBC. Repeat CBC in the morning. Keep a close eye on the blood pressure to make sure does not drop. Watch for another 24 hours possibly DC ECF tomorrow.
[2020-11-19 06:29] LABS: Basophils % (A) 0 %; Eosinophils # (A) 0.5 k/uL (0-0.7); Eosinophils % (A) 4 %; HCT 37.1 % (39.0-53.0); HGB 12.3 gm/dL (13.0-17.5); Lymphocytes # (A) 1.5 k/uL (1.0-4.8); Lymphocytes % (A) 14 %; MCHC 33.2 g/dL (31.0-37.0); MCV 93.5 fL (80.0-100.0); Mean Platelet Volume 7.7; Monocytes # (A) 0.6 k/uL (0-1.0); Monocytes % (A) 6 %; Neutrophils # (A) 8.2 k/uL (1.3-7.7); Neutrophils % (A) 75 %; Platelet Count 100 k/uL (150-450); RBC 3.97 m/uL (4.30-5.90); RDW 12.4 % (11.5-15.5)
[2020-11-19] MEDS: PSYLLIUM HUSK 100% 6 GM PACKET PO SCH (08:39)
[2020-11-19] MEDS: ACETAMINOPHEN TAB 500 MG TAB PO PRN (08:39)
[2020-11-19] MEDS: HYDROCORTISONE SUPPOSITORY 25 MG SUPP RECTAL SCH (08:42)
[2020-11-19] MEDS: METOPROLOL TARTRATE 50 MG TAB PO SCH (08:42)
[2020-11-19] MEDS: amLODIPine 5 MG TAB PO SCH (08:42)
[2020-11-19] MEDS: DOCUSATE 100 MG CAP PO SCH (08:43)
--- NOTE | 2020-11-19 13:27 | P.PN ---
Subjective Progress Note Date: 11/19/20 CHIEF COMPLAINT: Abdominal pain HISTORY OF PRESENT ILLNESS: Patient was seen and examined with Dr. Mays. Patient is being followed by surgical service regarding his abdominal pain, constipation and hemorrhoids. Patient did have 2 bowel movements yesterday. He is tolerating regular diet. No further bleeding per rectum. Patient appears comfortable no evidence of pain. Afebrile. WBC 11.0 hemoglobin 12.3 PHYSICAL EXAM: VITAL SIGNS: Reviewed. GENERAL: Well-developed in no acute distress. HEENT: No sclera icterus. Extraocular movements grossly intact. Moist buccal mucosa. Head is atraumatic, normocephalic. ABDOMEN: Soft. Nondistended. Nontender. NEUROLOGIC: Awake. Slightly confused. Cranial nerves II through XII grossly intact. ASSESSMENT: 1. Abdominal pain due to constipation 2. Rectal pain likely due to hemorrhoids that are inflamed due to his straining from constipation PLAN: -No surgical intervention planned -Continue conservative treatment of constipation and hemorrhoids -Continue regular diet -Patient can be discharged from surgical standpoint Physician Calculating Machine Mechanic note has been reviewed by physician. Signing provider agrees with the documented findings, assessment, and plan of care. Objective - Vital Signs Vital signs: Vital Signs Temp 97.3 F L 11/19/20 05:00 Pulse 64 11/19/20 05:00 Resp 16 11/19/20 10:33 BP 122/73 11/19/20 05:00 Pulse Ox 93 L 11/19/20 05:00 Intake & Output 11/18/20 11/19/20 11/19/20 18:59 06:59 18:59 Intake Total 120 590 Balance 120 590 Intake: Intake, IV Titration 120 Amount Sodium Chloride 0.9% 1, 120 000 ml @ 60 mls/hr IV . [id number] [facility] Rx#:[id number] Oral 590 Other: Voiding Method Diaper Diaper Toilet Incontinent Incontinent Urinal # Voids 2 2 # Bowel Movements 2 - Labs CBC & Chem 7: 11/19/20 05:42 11/16/20 05:33 Labs: Abnormal Lab Results - Last 24 Hours (Table) 11/19/20 Range/Units 05:42 WBC 11.0 H (3.8-10.6) k/uL RBC 3.97 L (4.30-5.90) m/uL Hgb 12.3 L (13.0-17.5) gm/dL Hct 37.1 L (39.0-53.0) % Plt Count 100 L (150-450) k/uL Neutrophils # 8.2 H (1.3-7.7) k/uL
[2020-11-19 14:03] VITALS: BP 112/69; PULSE 62; RESP 12; TEMP 98.1
--- NOTE | 2020-11-19 14:49 | P.DS ---
Providers Date of admission: 11/17/20 10:51 Expected date of discharge: 11/19/20 Attending physician: Filipe Kelly Consults: 11/16/20 19:05 Consult Physician Routine Consulting Provider: Loy Mays Consult Reason/Comments: abd pain Do you want consulting provider notified?: Yes [facility] Course: Chief Complaint: No bowel movement History of presenting complaint: This is a pleasant 85-year-old patient who follows with Dr. Mari. Chronic stable medical conditions include atrial fibrillation, hard of hearing, osteoarthritis, prostate disorder, chronic back pain, pacemaker, chronic constipation, urinary incontinence. Patient has a history of hemorrhoidectomy. Patient is brought into the ER by his son as he was complaining of pain around the rectal area. Patient has a long-standing history of constipation. On this occasion patient has not had a bowel movement for about 7 days. According to son patient has not been eating much. Patient is given a dose of morphine in the ER patient became increasingly confused. Hence was admitted. Patient has slowly been forgetful but was able to manage pretty well. He lives with his at [facility]. Seen here independent apartments. Has a walker. And CPAP machine. Patient was rather confused lethargic . Additional history is obtained by the son in the evening. Admitted with severe constipation, possible pain from anal fissure. Acute delirium. Precipitated by morphine in the ER. Patient is given laxatives. Had a good bowel movement. Given Anusol HC rectal pain improved. Eating better. Today-tolerating diet. Getting better. Tired. Getting discharged to inpatient rehab.. Discussion and discharge planning more than 35 minutes Consultation: Dr. Mays from general surgery Past medical history to include: Atrial fibrillation, hard of hearing, hypertension, osteoarthritis, prostate disorder, obstructive sleep apnea, hepatitis C, chronic back pain, permanent pacemaker, constipation, kyphosis urinary incontinence, uses a walker Social history: Lives with his at [facility] seen independent apartments, has some home care services, has a CPAP machine has a walker. Patient smoked half a pack a day didn't swished to cigars a smoked from 1945 through 1969. No alcohol. Family history: Patient cannot tell Physical examination: VITAL SIGNS: 98.1, 62, 12, 112 x 69, 91% room air GENERAL: Laying in bed, awake EYES: Pupils equal. Conjunctiva normal. HEENT: External appearance of nose and ears normal, oral cavity grossly normal. NECK: JVD unable to assess; masses not palpable. HEART: First and second heart sounds are normal; no edema. LUNGS: Respiratory rate normal; decreased breath sounds. ABDOMEN: Soft, nontender, liver spleen not palpable, no masses palpable. RECTAL exam: I do not see any external hemorrhoids. Anal opening is rather patulous. Cannot rule out a posterior fissure at the 6 o'clock position PSYCH: Answering simple questions MUSCULOSKELETAL: Evidence of OA especially in the hands INVESTIGATIONS, reviewed in the clinical context: November 19: White count 11 hemoglobin 12.3 platelets 100 White count 7.4 hemoglobin 15.6 platelets 233 potassium 3.9 creatinine 0.81 Computed tomography scan of the brain shows cerebral atrophy and chronic small vessel ischemia Abdominal x-ray film personally reviewed by me shows-retained stool Assessment and plan: -Perirectal pain possibly from anal fissure. From chronic constipation. Started on Anusol HC. -Acute on chronic obstipation. Started Metamucil twice daily. Also encourage oral intake. -Cognitive impairment from underlying Alzheimer's dementia. . -Acute delirium from having received IV morphine in the ER, leading to acute agitation-improved -Persistent atrial fibrillation -Essential hypertension. DC Catapres patch. Continue Lopressor. Norvasc 5 mg daily at bedtime . -Permanent pacemaker -Primary osteoarthritis to use Tylenol when necessary -Obstructive sleep apnea may use CPAP from home -Chronic kyphosis -Chronic gait dysfunction continues a walker. Currently fall precautions -Thrombocytopenia. Follow CBC. Disposition: [facility] Patient Condition at Discharge: Stable Plan - Discharge Summary Discharge Rx Participant: Yes New Discharge Prescriptions: New Hydrocortisone Suppository [Anusol-Hc] 25 mg RECTAL BID supp Psyllium Husk 100% [Metamucil Packet] 6 gm PO BID packet Continue Cyanocobalamin [Vitamin B-12] 1,000 mcg PO HS Pravastatin Sodium [Pravachol] 20 mg PO HS Metoprolol Tartrate [Lopressor] 50 mg PO BID #60 tab Tamsulosin [Flomax] 0.4 mg PO HS Acetaminophen [Tylenol Extra Strength] 500 mg PO Q4HR PRN PRN Reason: Pain amLODIPine [Norvasc] 5 mg PO HS Propylene Glycol/Peg 400 [Systane Ultra 0.4-0.3% Eye Drp] 1 drop BOTH EYES HS PRN PRN Reason: dry eyes Zinc Oxide [Desitin] 1 applic TOPICAL DAILY PRN PRN Reason: Rash Cyclobenzaprine [Flexeril] 5 mg PO TID PRN #20 tab PRN Reason: Spasms Naproxen [Naprosyn] 250 mg PO BID PRN PRN Reason: Pain Mirabegron [Myrbetriq] 25 mg PO HS Famotidine [Pepcid] 20 mg PO BID PRN PRN Reason: gerds Discontinued Cholecalciferol [Vitamin D3 (25 Mcg = 1000 Iu)] 1,000 unit PO HS Fish Oil/Dha/Epa [Fish Oil 1,200 mg Fish Oil] 2 cap PO HS Fluticasone Nasal [place] [Flonase Nasal [place]] 2 spr EA NOSTRIL DAILY PRN PRN Reason: Allergy Symptoms predniSONE See Taper PO DIRECTED traMADol HCL 50 - 100 mg PO Q6H PRN PRN Reason: Pain Discharge Medication List Cyanocobalamin [Vitamin B-12] 1,000 mcg PO HS 04/06/16 [History] Pravastatin Sodium [Pravachol] 20 mg PO HS 07/19/17 [History] Metoprolol Tartrate [Lopressor] 50 mg PO BID #60 tab 08/25/17 [Rx] Tamsulosin [Flomax] 0.4 mg PO HS 10/18/17 [History] Acetaminophen [Tylenol Extra Strength] 500 mg PO Q4HR PRN 08/22/18 [History] Propylene Glycol/Peg 400 [Systane Ultra 0.4-0.3% Eye Drp] 1 drop BOTH EYES HS PRN 08/13/20 [History] Zinc Oxide [Desitin] 1 applic TOPICAL DAILY PRN 08/13/20 [History] amLODIPine [Norvasc] 5 mg PO HS 08/13/20 [History] Cyclobenzaprine [Flexeril] 5 mg PO TID PRN #20 tab 08/15/20 [Rx] Famotidine [Pepcid] 20 mg PO BID PRN 11/15/20 [History] Mirabegron [Myrbetriq] 25 mg PO HS 11/15/20 [History] Naproxen [Naprosyn] 250 mg PO BID PRN 11/15/20 [History] Hydrocortisone Suppository [Anusol-Hc] 25 mg RECTAL BID supp 11/19/20 [Rx] Psyllium Husk 100% [Metamucil Packet] 6 gm PO BID packet 11/19/20 [Rx] Follow up Appointment(s)/Referral(s): Alejandro Ventura MD [STAFF PHYSICIAN] - 12/02/20 11:00 am Patient Instructions/Handouts: Constipation (DC), Alzheimer Disease (DC), Fall Prevention (DC)
== END 2020-11-19 16:50 | disposition home or self-care (01) | DRG 392 ==
LOC: EC 18:21 → 5NMEDONC 22:43 → OBSVTOIN 11-17 10:51
PROVIDERS: ADMIT Hospitalist; ATTEND Hospitalist
DX: K59.09 Other constipation (principal); I48.19 Other persistent atrial fibrillation; K64.9 Unspecified hemorrhoids; K60.2 Anal fissure, unspecified; H91.90 Unspecified hearing loss, unspecified ear; I10 Essential (primary) hypertension; Z20.822 Contact with and (suspected) exposure to COVID-19; B19.20 Unspecified viral hepatitis C without hepatic coma; D69.6 Thrombocytopenia, unspecified; F02.80 Dementia in other diseases classified elsewhere, unspecified severity, without behavioral disturbance, psychotic disturbance, mood disturbance, and anxiety; G30.9 Alzheimer's disease, unspecified; G47.33 Obstructive sleep apnea (adult) (pediatric); G89.29 Other chronic pain; T40.2X5A Adverse effect of other opioids, initial encounter; Y92.239 Unspecified place in hospital as the place of occurrence of the external cause; R41.0 Disorientation, unspecified; M19.91 Primary osteoarthritis, unspecified site; M40.209 Unspecified kyphosis, site unspecified; N42.9 Disorder of prostate, unspecified; R32 Unspecified urinary incontinence; Z79.899 Other long term (current) drug therapy; Z80.0 Family history of malignant neoplasm of digestive organs; Z82.49 Family history of ischemic heart disease and other diseases of the circulatory system; Z87.891 Personal history of nicotine dependence; M54.9 Dorsalgia, unspecified; R26.9 Unspecified abnormalities of gait and mobility; Z98.42 Cataract extraction status, left eye; Z98.41 Cataract extraction status, right eye; R45.1 Restlessness and agitation
CPT/HCPCS: 36415; 70450; 74021; 80053; 83690; 85025; 87635; 96374; 96375; 96376; 99285